=== PATIENT | male | born 1970 | race Caucasian/White ===

== ENCOUNTER → 2016-05-13 | Outpatient (CLI) | payer OTHER ==
[~2016-05-13] MED LIST: ADULT LOW DOSE81 MG PO; BACLOFEN 10 MG10 MG PO; BACLOFEN20 MG PO; BREO ELLIPTA 11 EACH IH; BUSPIRONE HCL10 MG PO; BUSPIRONE HCL15 MG PO; CALCIUM PO; CHANTIX1 MG PO; CHOLESTYRAMINE378 GM PO; CLEOCIN HCL150 MG PO; CYMBALTA60 MG PO; DDAVP0.2 MG PO; DESMOPRESSIN A0.2 M2 PO; DILANTIN100 MG PO; DILTIAZEM 24HR240 MG PO; ESCITALOPRAM OX20 MG PO; HYDROCODONE-AP1 EAC6 PO; KEPPRA 500 MG500 M1 PO; KETOCONAZOLE60 GM TP; LASIX 20 MG TAB20 MG PO; LASIX PO; LIPITOR 20 MG T20 M1 PO; LIPITOR10 MG PO; LOMOTIL TABLET1 EACH PO; LOPRESSOR 50 MG50 M1 PO; LOPRESSOR50 PO; METFORMIN HCL1000 MG PO; METFORMIN HCL500 MG PO; NICOTINE TRANSD14 M1 TRANSDERM; NORCO 5-325 TA1 EACH PO; OXYCODONE-APAP1 EAC6 PO; PHENTERMINE H37.5 MG; POTASSIUM99 M1; PREVACID 30MG C30 M1 PG; REMERON 30 MG T30 M1 PO; SSD CREAM 1% 5050 GM TOP; SSD25 GM TOP; TIZANIDINE HCL 22 M1 PO; TRAMADOL 50 MG50 MG PO; TRICOR145 MG PO; VITAMIN D 11000 UNIT PO; VITAMIN D1000 UNI1 PO; VITAMIN D35000 UNIT PO; XANAX 0.5 MG0.5 MG PO; XANAX1 MG PO; XARELTO10 MG PO; ZOLPIDEM TARTRA10 MG PO; forteo PO
--- NOTE | ~2016-05-13 | HPC ---
[facility] [address] [address] PAIN MANAGEMENT CONSULTATION Name: NATYRICARDO Room #: REG DANIA Antonella#: [id number] Admission: 05/13/16 Attend Phys: Ramón Main MD Discharge: Date of : 68 Report #: [id number] THIS REPORT FOR: //name// CC: Ramón CAAL DATE OF SERVICE: 05/13/2016 Followup visit for management of intrathecal infusion pump. The patient returns to pain clinic today with his significant other for refill of his intrathecal infusion pump. 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 He has done pretty well with his intrathecal pump. He is here today with a report that his spasticity and pain are increased slightly. We talked about supplementing this and I have given him tizanidine 2 mg to try 3 times a day when his intermittent spasms occur. He is already on a fairly high dose of his intrathecal infusion pump with a ____ program providing 400 mcg per day. There is still room to move up, but without we would try this first. He reports that his spasticity when severe is high 8 to 9 over 10 and causes pain. Today it is not such a bad day. Notable since his last visit is his ongoing weight loss. His weight is down 30 pounds. We do not have a BMI. PHYSICAL EXAMINATION: Blood pressure is 130/90, heart rate 78, respirations 16. He is confined to an electric wheelchair. He is unable to stand related to spasticity. He has notable spasticity in the lower extremities at this time. Pump is in the right lower quadrant and nontender. IMPRESSION: 1. 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 2. Management of intrathecal infusion pump with refill and reprogramming. PROCEDURE: Skin prepped with ChloraPrep and anesthetized, 22-gauge non-coring needle advanced into the intrathecal pump. Old medication removed and discarded. The pump was refilled with baclofen 40 mL of 2000 mcg/mL. Reprogramming session was performed with no change in his current daily dose of 400 mcg with complex infusion. He will be seen back in the pain clinic in 2 to 3 months. <ELECTRONICALLY SIGNED> By: Ramón Main MD 06/05/16 1130 1644 2334 Ramón Main MD /nt
[2016-05-13 14:23] VITALS: BP 130/90
== END | disposition home or self-care (01) ==
LOC: PAIN 07:23
DX: G80.1 Spastic diplegic cerebral palsy (principal); I69.398 Other sequelae of cerebral infarction; F17.200 Nicotine dependence, unspecified, uncomplicated; Z87.820 Personal history of traumatic brain injury

== ENCOUNTER → 2016-11-15 | Outpatient (CLI) | payer OTHER ==
[~2016-11-15] VITALS: Ht 188 cm; Wt 106.1 kg
--- NOTE | ~2016-11-15 | HPC ---
[facility] [address] [place] [address] PAIN MANAGEMENT CONSULTATION Name: RICARDO ALFONSO Room #: REG DANIA Berman#: [id number] Admission: 11/15/16 Attend Phys: Randall John DO Discharge: Date of : 68 Report #: [id number] THIS REPORT FOR: //name// CC: Randall CAAL DATE OF SERVICE: 11/15/2016 The patient is a 46-year-old gentleman typically treated by Dr. Ramón Main for spasticity status post a brain tumor resection and intracranial bleed, has an intrathecal pump for management. He notes the pump does well except near the end of the pump refill cycle, he typically has increasing spasticity. This is a common phenomenon seen with the [employer] pumps, they do tend to distribute a little lower rate if they are near the end of the refill. Today, we discussed this at length. I have elected to continue some tizanidine for breakthrough spasm at the end of the cycle. We refilled the pump today; it is a 40 mL ITP. He currently gets baclofen at a flex rate with an overall daily rate of 395 mcg a day. No changes were made. PROCEDURE NOTE: After written informed consent was obtained, the patient was allowed to stay in his wheelchair, though he reclined the back. Skin overlying the intrathecal pump was cleansed with ChloraPrep. Skin wheal with Xylocaine was raised. Sterile drape was applied. Pump was accessed and aspirated residual contents, I then refilled the pump with 40 mL of new injectate, baclofen at 2000 mcg per mL. Frequent aspiration showed easy return of the injectate. Needle was removed. The area was cleansed, Band-Aids applied. Pump was reprogrammed, new refill date is 05/25/2017. No changes were made. I did renew patient's tizanidine for breakthrough spasm at the end of cycle. If the patient still has increasing pain in about 7 days, we will have him come back to see Dr. Main for intrathecal pump adjustment. By: [id number] Randall John DO /nt
[2016-11-15 13:40] VITALS: BP 116/81
== END | disposition home or self-care (01) ==
LOC: PAIN 11-12 10:29
DX: Z45.1 Encounter for adjustment and management of infusion pump (principal); Z98.890 Other specified postprocedural states; F17.210 Nicotine dependence, cigarettes, uncomplicated

== ENCOUNTER → 2017-05-25 | Outpatient (CLI) | payer OTHER ==
[~2017-05-25] VITALS: Ht 188 cm; Wt 120.2 kg
--- NOTE | ~2017-05-25 | HPC ---
[facility] [place] [address] PAIN MANAGEMENT CONSULTATION Name: NATYRICARDO Room #: REG DANIA GuzmanGoldieLatoshaGoldie#: [id number] Admission: 05/25/17 Attend Phys: Ramón Main MD Discharge: Date of : 68 Report #: [id number] THIS REPORT FOR: //name// CC: Ramón CAAL DATE OF SERVICE: 05/25/2017 REASON: Followup visit for management of spasticity with intrathecal pump. HISTORY: The patient returns to pain clinic today for refill of his intrathecal pump. He has baclofen infusing under a Flex program providing a total of 395 mcg a day. His spasticity is generally well controlled, although he reports interestingly that near the end of his pump run close to his alarm date, he seems to have increasing spasticity. This is a pretty long interval usually about 181 days. We have decided that for the next refill, we will try and bring him in at about 6.5-7 months. Spasticity today has increased a slight amount. His spasticity is related to closed head injury. He is currently living in an independent apartment. He has a caregiver that comes in 2 hours a day. She does some of the work for him. He has had good caregivers and some that are not so helpful. He is not as pleased with his current caregivers. He is one from the one he had prior to this. That woman was an immigrant from [place]. I interrogated his pump. He is receiving baclofen. There has been no alarm status. PHYSICAL EXAMINATION: GENERAL: The patient is in a wheelchair. He has [id number] spasticity in lower extremities. VITAL SIGNS: Blood pressure is 130/80, heart rate is 85. IMPRESSION: 1. Spasticity related to closed head injury. 2. Management of intrathecal infusion pump with refill and reprogramming session. PROCEDURE: Skin was prepped with ChloraPrep and anesthetized, and a 22-gauge non-coring needle advanced into the pump. Old medication removed and discarded. A 2 mL expected and retrieved. Pump was refilled with 40 mL of baclofen 2000 mcg/mL. The programming session was performed. [facility] [address] [place] [address] PAIN MANAGEMENT CONSULTATION Name: RICARDO ALFONSO Room #: REG [facility]#: [id number] Admission: 05/25/17 Attend Phys: Ramón Main MD Discharge: Date of : 68 Report #: [id number] PLAN: For him to return to the pain clinic in October of next year. Programming information was reviewed and signed and a copy was given across for his records. <ELECTRONICALLY SIGNED> By: Ramón Main MD 06/22/17 1640 1345 2132 Ramón Main MD /nt
[2017-05-25 12:41] VITALS: BP 136/87
== END | disposition home or self-care (01) ==
LOC: PAIN 05-23 07:05
DX: Z45.2 Encounter for adjustment and management of vascular access device (principal); G80.1 Spastic diplegic cerebral palsy; G89.29 Other chronic pain; F41.8 Other specified anxiety disorders; F17.210 Nicotine dependence, cigarettes, uncomplicated; Z88.8 Allergy status to other drugs, medicaments and biological substances; Z79.891 Long term (current) use of opiate analgesic; Z98.890 Other specified postprocedural states; Z79.899 Other long term (current) drug therapy

== ENCOUNTER 2017-07-26 12:53 | Emergency (ER) | payer OTHER ==
[~2017-07-26] VITALS: Ht 188 cm; Wt 114.8 kg
== END 2017-07-26 18:05 | disposition home or self-care (01) ==
LOC: ER 12:53
DX: S81.801A Unspecified open wound, right lower leg, initial encounter (principal); E11.9 Type 2 diabetes mellitus without complications; I10 Essential (primary) hypertension; F17.210 Nicotine dependence, cigarettes, uncomplicated; Z88.1 Allergy status to other antibiotic agents; X58.XXXA Exposure to other specified factors, initial encounter; Y93.89 Activity, other specified; Y92.89 Other specified places as the place of occurrence of the external cause; Y99.8 Other external cause status

== ENCOUNTER → 2017-11-14 | Outpatient (CLI) | payer OTHER ==
--- NOTE | ~2017-11-14 | HPC ---
[facility] [place] [address] PAIN MANAGEMENT CONSULTATION Name: NATYRICARDO Benigno Room #: REG DANIA Velasquez.#: [id number] Admission: 11/14/17 Attend Phys: Ramón Main MD Discharge: Date of : 68 Report #: [id number] THIS REPORT FOR: //name// CC: Physician staff Ramón Torres DO DATE OF SERVICE: 11/14/2017 Followup visit for management of intrathecal infusion pump for spasticity. The patient is here today for renewal of medication in his intrathecal pump. He is receiving Baclofen with a flex program, daily dose is 395 mcg. He has a slightly larger dose between midnight and 07:00 a.m. He reports that his current medication is adequate. He has history of closed head injury. He is living in an independent apartment with a caregiver. He continues to smoke and was counselled regarding this. He is a fall risk and needs help with movements due to his spasticities. His comorbidities include seizure disorder, history of CVA, hypertension and depression. PHYSICAL EXAMINATION: He is pleasant and he was alert and oriented, without signs of overmedication. Blood pressure is 123/74, heart rate 87. He is overweight; with his immobility, his current weight is 300 pounds. We did not check his height, so I cannot give BMI. He has a history of hypertension. He is on no opioid medications through our clinic, only the Baclofen. He does not drink alcohol, but smokes up to a pack a day and was counselled. Physical exam shows a local cranial defect, status post compression. He is afebrile. Blood pressure 123/74. Pump is in the left lower quadrant of the abdomen; it is nontender. IMPRESSION: 1. Closed head injury with spasticity. 2. Management of intrathecal infusion pump. PROCEDURE: Pump was refilled in the usual fashion. Skin prepped with ChloraPrep and a 22-gauge non-coring needle advanced in the pump. Old medication removed and discarded. Pump was refilled with baclofen 2000 mcg per mL with 40 mL. Reprogramming session performed. His next refill is not scheduled until 05/24/2018. [address] [address] PAIN MANAGEMENT CONSULTATION Name: RICARDO ALFONSO Benigno Room #: REG [facility]#: [id number] Admission: 11/14/17 Attend Phys: Ramón Main MD Discharge: Date of : 68 Report #: [id number] No oral medications were written. Followup visit is scheduled in April. <ELECTRONICALLY SIGNED> By: Ramón Main MD 11/16/17 1622 1610 2226 Ramón Main MD /nt
[2017-11-14 14:37] VITALS: BP 123/74
== END | disposition home or self-care (01) ==
LOC: PAIN 10-24 06:45
DX: Z45.1 Encounter for adjustment and management of infusion pump (principal); G80.1 Spastic diplegic cerebral palsy; I10 Essential (primary) hypertension; F32.9 Major depressive disorder, single episode, unspecified; F17.210 Nicotine dependence, cigarettes, uncomplicated; G40.909 Epilepsy, unspecified, not intractable, without status epilepticus; Z79.899 Other long term (current) drug therapy; Z88.8 Allergy status to other drugs, medicaments and biological substances

== ENCOUNTER 2018-01-28 19:47 | Emergency (ER) | payer OTHER ==
[~2018-01-28] VITALS: Ht 188 cm; Wt 127.0 kg
--- NOTE | ~2018-01-28 | EKG ---
[address] [address] ELECTROCARDIOGRAM REPORT Name: NATYRICARDO Room #: [facility]#: [id number] Admission: 01/28/18 Attend Phys: Discharge: 01/28/18 Date of : 68 Report #: [id number] THIS REPORT FOR: //name// [facility] ED Test Date: 2018-01-28 Test Time: 20:53:58 Pat Name: RICARDO ALFONSO Department: Room: Gender: Proc Tech: 1 : 1970 Requested By: Amy Ramsey Order Number: [id number] MD: Titus Rust Measurements Intervals [place] Rate: 122 P: 74 WI: 121 QRS: 71 QRSD: 101 T: 12 QT: 313 QTc: 446 Interpretive Statements Sinus tachycardia Otherwise no significant abnormality Compared to ECG 12/28/2017 19:15:00 No significant change was found Electronically Signed On 01-29-2018 11:32:42 CDT by Titus Rust [email or web address] <ELECTRONICALLY SIGNED> By: Titus Rust MD, [facility] 01/29/18 1132 52 52 Titus Rust MD, FAC /EPI
[2018-01-28 20:21] LABS: ABSOLUTE NEUTROPHILS 8.8 thou/uL (1.4-8.2); BASOPHILS 1.2 % (0.0-2.0); CALCIUM 9.4 mg/dL (8.5-10.1); CREATININE 0.9 mg/dL (0.7-1.3); EOSINOPHILS 2.1 % (0.0-3.0); HEMATOCRIT 47.8 % (42.0-52.0); HEMOGLOBIN 16.9 gm/dL (14.0-18.0); LYMPHOCYTES 14.1 % (24.0-44.0); MCH 33.8 pg (26.0-34.0); MCHC 35.3 g/dL (28.0-37.0); MCV 95.7 fL (80.0-100.0); MONOCYTES 8.6 % (1.0-8.0); PLATELET COUNT 219 thou/uL (150-400); POTASSIUM 3.8 mmol/L (3.5-5.1); WBC 11.9 thou/uL (4.0-11.0)
== END 2018-01-28 23:26 | disposition home or self-care (01) ==
LOC: ER 19:47
PROVIDERS: Student in an Organized Health Care Education/Training Program
DX: H53.8 Other visual disturbances (principal); E11.9 Type 2 diabetes mellitus without complications; F32.9 Major depressive disorder, single episode, unspecified; F41.9 Anxiety disorder, unspecified; I11.0 Hypertensive heart disease with heart failure; I50.9 Heart failure, unspecified; Z86.73 Personal history of transient ischemic attack (TIA), and cerebral infarction without residual deficits; F17.210 Nicotine dependence, cigarettes, uncomplicated; Z88.1 Allergy status to other antibiotic agents

== ENCOUNTER → 2018-05-18 | Outpatient (CLI) | payer OTHER ==
--- NOTE | ~2018-05-18 | HPC ---
[facility] [place] [address] PAIN MANAGEMENT CONSULTATION Name: RICARDO ALFONSO Benigno Room #: REG DANIA VelasquezGoldie#: [id number] Admission: 05/18/18 Attend Phys: Ramón Main MD Discharge: Date of : 68 Report #: [id number] THIS REPORT FOR: //name// CC: Ramón Torres DO DATE OF SERVICE: 05/18/2018 Followup visit for management of intrathecal infusion pump. The patient is here today for refill of his intrathecal infusion pump. He has had closed head injury in the past and suffers with spasticity. He is still able to live independently. He has a dog that he takes care of and he is able to do all his own transfers. He is clearly a fall risk and needs help with movements. He has someone come in with today. He is continuing to smoke and was counseled regarding this. PHYSICAL EXAMINATION: His blood pressure is 145/95, heart rate is 110. His blood pressures treated with medication by primary. He is in a wheelchair and he was unable to be weighed today. He smells heavily of tobacco. Hygiene is poor. He has tenderness across his back and into his neck. There is local cranial defect status post decompression. IMPRESSION: 2. Closed head injury with spasticity. 3. Management of intrathecal pump with baclofen. PROCEDURE: Refill and reprogramming. Skin was prepped with ChloraPrep and anesthetized. A 22-gauge non-coring needle advanced in the pump first attempt. Old medication removed and discarded. Pump was then refilled with baclofen 2000 mcg/mL. Reprogramming session was performed. He will be receiving on an average day 395 mcg of baclofen. His next refill is scheduled for 11/23/2018. No oral medications were provided. He was discharged in good condition. By: 1648 1712 Ramón Main MD /nt
[2018-05-18 13:23] VITALS: BP 145/95
--- NOTE | 2018-05-18 13:58 | NUR ---
Pain Clinic Assessment: 1. History of Osteoarthritis: Not Applicable History of Rheumatoid Arthritis: Not Applicable 2. Height: ft. in. cm. Weight: lb. oz. kg. Patient's BMI: 3. Vital Signs: BP: 145/95 Pulse: 110 Resp: 20 Temp: 02 Sat: 96 ECG Mon: 4. Pain Intensity: 0 5. Fall Risk: Dizziness: N Needs help standing or walking: Y Fallen in the last 3 months: N Fall risk comments: 6. Patient on Blood Thinner: None 7. History of Hypertension: Y 8. Opioid Therapy greater than 6 weeks: N Opiate Contract Signed: 9. Risk Assessment Tool Provided: 1-low risk 10. Functional Assessment Tool: 11. Recreational Drug Use: Never Drug Type: Tobacco Use: Current Every Day Smoker Tobacco Type: Cigarettes Amount or Packs/day: 1 How Many Years: 30 Alcohol Use: No Frequency: Quant:
== END | disposition home or self-care (01) ==
LOC: PAIN 07:16
DX: Z45.1 Encounter for adjustment and management of infusion pump (principal); G89.29 Other chronic pain; G80.1 Spastic diplegic cerebral palsy; F17.210 Nicotine dependence, cigarettes, uncomplicated; Z79.891 Long term (current) use of opiate analgesic; Z98.890 Other specified postprocedural states; Z79.899 Other long term (current) drug therapy; Z88.8 Allergy status to other drugs, medicaments and biological substances

== ENCOUNTER 2018-10-16 17:33 | Emergency (ER) | payer OTHER ==
[~2018-10-16] VITALS: Ht 188 cm; Wt 136.1 kg
[2018-10-16 18:36] LABS: ABSOLUTE NEUTROPHILS 7.9 thou/uL (1.4-8.2); BASOPHILS 0.9 % (0.0-2.0); EOSINOPHILS 4.2 % (0.0-3.0); HEMATOCRIT 51.7 % (42.0-52.0); HEMOGLOBIN 17.6 gm/dL (14.0-18.0); LYMPHOCYTES 13.7 % (24.0-44.0); MCH 33.5 pg (26.0-34.0); MCHC 34.1 g/dL (28.0-37.0); MCV 98.1 fL (80.0-100.0); MONOCYTES 9.4 % (1.0-8.0); PLATELET COUNT 267 thou/uL (150-400); POLYS 71.8 % (36.0-66.0); RBC 5.27 mil/uL (4.50-6.00); RDW 14.5 % (10.5-14.5)
[2018-10-16 18:40] LABS: ANION GAP 8 mmol/L (7-16); BUN 4 mg/dL (7-18); CHLORIDE 105 mmol/L (98-107); CO2 32 mmol/L (21-32); CREATININE 1.1 mg/dL (0.7-1.3); GLUCOSE 99 mg/dL (74-106); POTASSIUM 4.2 mmol/L (3.5-5.1); SODIUM 145 mmol/L (136-145)
[2018-10-16 18:49] LABS: TROPONIN-I <0.06 ng/mL (<0.06)
[2018-10-16 20:41] VITALS: BP 131/93
--- NOTE | 2018-10-18 07:39 | EKG ---
[address] [address] ELECTROCARDIOGRAM REPORT Name: RICARDO ALFONSO Room #: [facility]#: [id number] ������������������ Admission: 10/16/18 ������������������ Attend Phys: Discharge: 10/16/18 ������������������ Date of : 68 Report #: [id number] ����������������������������������������������������������������� [id number] THIS REPORT FOR: //name// [facility] ED Test Date: 2018-10-16 Test Time: 17:52:39 Pat Name: RICARDO ALFONSO Department: Room: Gender: M Hypo Dipper: NANDINI : 1970 Requested By: Radha Nicole Order Number: [id number] MD: Titus Rust Measurements Intervals [place] Rate: 109 P: 55 TX: 173 QRS: 57 QRSD: 89 T: 85 QT: 333 QTc: 449 Interpretive Statements Sinus tachycardia Borderline low voltage, extremity leads Compared to ECG 01/28/2018 20:53:58 No significant changes Electronically Signed On 10-18-2018 7:39:12 CDT by Titus Rust [email or web address] ��������������������������������������������� <ELECTRONICALLY SIGNED> ���������������������������������������� By: Titus Rust MD, [facility] ��������������������������������������������� 10/18/18 0739 51 51 Titus Rust MD, FACC /EPI
== END 2018-10-16 21:34 | disposition home or self-care (01) ==
LOC: ER 17:33
PROVIDERS: Emergency Medicine
DX: R00.0 Tachycardia, unspecified (principal); R06.2 Wheezing; E11.9 Type 2 diabetes mellitus without complications; F41.9 Anxiety disorder, unspecified; I11.0 Hypertensive heart disease with heart failure; I50.9 Heart failure, unspecified; F32.9 Major depressive disorder, single episode, unspecified; F17.210 Nicotine dependence, cigarettes, uncomplicated; Z88.1 Allergy status to other antibiotic agents; Z86.73 Personal history of transient ischemic attack (TIA), and cerebral infarction without residual deficits

== ENCOUNTER → 2018-11-23 | Outpatient (CLI) | payer OTHER ==
[~2018-11-23] MED LIST changes: +BACLOFEN 10MG T10 MG PO
--- NOTE | ~2018-11-23 | HPC ---
[facility] [place] [address] PAIN MANAGEMENT CONSULTATION Name: NATYRICARDO Benigno Room #: REG DANIA GuzmanGoldieLatoshaGoldie#: [id number] Admission: 11/23/18 ������������������ Attend Phys: Ramón Main MD Discharge: ������������������ Date of : 68 Report #: [id number] THIS REPORT FOR: //name// CC: Josefina Main DATE OF SERVICE: 11/23/2018 Followup visit for management of intrathecal baclofen pump and the treatment of spasticity related to closed head injury. The patient returns to pain clinic today for refill. We do his pump refills about twice a year. He is doing okay, although today, he is really disheveled. He has a caregiver that comes and helps him most days, but she did not come in today. His clothes are unkempt and he looks as though he needs a shower and bath. We discussed that. He is receiving his caregiver services through Medicaid. It has allowed him to remain independent in [address] He came today by Andrea. He says that his spasticity is adequately controlled at current rate, which is 395 mcg of baclofen per day. PQRS review is completed: 1. He denies any history of arthritis. 2. BMI is well in excess of 40. We did not weigh him off his chair today. Blood pressure is 111/75, heart rate 107, respirations 16. Pain intensity is 0. He is at fall risk and needs help standing and transferring. He is on no blood thinners, but does have a history of hypertension. He is prescribed medications by his primary care physician. His medication list was reviewed and reconciled before discharge and is on electronic medical record. I did not provide oral medications for him, although I did provide a supplement, an emergency dose of oral baclofen for him today. He is on no opioid medications. He continues to smoke a pack of cigarettes a day, but denies alcohol. PHYSICAL EXAMINATION: VITAL SIGNS: As noted above. GENERAL: He is a very pleasant, outgoing gentleman and almost jovial. CHEST: Clear to auscultation. HEART: His cardiac rhythm is regular. NEUROLOGICAL: He has minimal spasticity. SKIN: He has significant thickening of the skin, almost alligator skin like in the calves in the lower extremities. There is no evidence of infection or cellulitis. It should be noted that he has multiple dental caries and we discussed oral hygiene as well during this visit today. [facility] [address] [place] [address] PAIN MANAGEMENT CONSULTATION Name: RICARDO ALFONSO [facility] [id number] Admission: 11/23/18 ������������������ Attend Phys: Ramón Main MD Discharge: ������������������ Date of : 68 Report #: [id number] IMPRESSION: 1. Closed head injury with spasticity. 2. Management of intrathecal pump with baclofen refill and reprogramming. We prepared to refill his pump. PROCEDURE: The skin was prepped with ChloraPrep and a 22-gauge needle advanced in the pump. I withdrew the 3 mL of remaining solution and prepared, discarded, but we had opened up the ____ kits and could not find the vials. At first, it was felt that the packaging was incomplete. It was later found that we had removed and placed them in the skin therapist the treatment cart. The pump was then refilled with 40 mL of baclofen 2000 mcg/mL and reprogramming session was performed. His next refill will not be until 04/2019. Reprogramming information was checked. A copy was provided for the patient. I did give him a prescription today for baclofen 10-mg tablets, #30, 1 to 2 tablets q.6 hours as needed in case he feels that he is going through baclofen withdrawal. We have had a pump failure in the past, although it is quite unusual. Instructions were given to the patient on how to manage such an event. We plan to see him back in the clinic for refill in 6 months. ��������������������������������������������� ���������������������������������������� By: ��������������������������������������������� 1728 0010 Ramón Main MD /nt
[2018-11-23 14:20] VITALS: BP 111/75
--- NOTE | 2018-11-23 14:37 | NUR ---
Pain Clinic Assessment: 1. History of Osteoarthritis: Not Applicable History of Rheumatoid Arthritis: Not Applicable 2. Height: ft. in. cm. Weight: lb. oz. kg. Patient's BMI: 3. Vital Signs: BP: 111/75 Pulse: 107 Resp: 16 Temp: 02 Sat: 95 ECG Mon: 4. Pain Intensity: 0 5. Fall Risk: Dizziness: N Needs help standing or walking: Y Fallen in the last 3 months: N Fall risk comments: 6. Patient on Blood Thinner: None 7. History of Hypertension: Y 8. Opioid Therapy greater than 6 weeks: N Opiate Contract Signed: 9. Risk Assessment Tool Provided: 1-low risk 10. Functional Assessment Tool: 11. Recreational Drug Use: Never Drug Type: Tobacco Use: Current Every Day Smoker Tobacco Type: Cigarettes Amount or Packs/day: 1 PACK/DAY How Many Years: Alcohol Use: No Frequency: Quant:
== END | disposition home or self-care (01) ==
LOC: PAIN 06:50
DX: Z45.1 Encounter for adjustment and management of infusion pump (principal); I10 Essential (primary) hypertension; F17.210 Nicotine dependence, cigarettes, uncomplicated; Z88.8 Allergy status to other drugs, medicaments and biological substances; Z79.899 Other long term (current) drug therapy

== ENCOUNTER 2018-12-21 23:28 | Inpatient (IN) | payer OTHER ==
[~2018-12-21] VITALS: Ht 190.5 cm; Wt 142.8 kg
[2018-12-21 23:30] VITALS: BP 140/79
[2018-12-21] MEDS ORDERED: FLUTICASONE-SA1 EAC4 INH (23:39)
[2018-12-21] MEDS ORDERED: VENTOLIN HFA 1818 GM INH (23:39)
[2018-12-21] MEDS ORDERED: LOMOTIL TABLET1 EACH PO (23:40)
[2018-12-21] MEDS ORDERED: QUETIAPINE FUM100 MG PO (23:40)
[2018-12-21] MEDS ORDERED: NF (23:57)
[2018-12-22 00:29] LABS: URINE BILIRUBIN NEGATIVE (Negative); URINE BLOOD TRACE (Negative); URINE CLARITY CLEAR; URINE COLOR YELLOW; URINE GLUCOSE-RANDOM* NEGATIVE (Negative); URINE KETONES NEGATIVE (Negative); URINE LEUKOCYTES-REFLEX NEGATIVE (Negative); URINE NITRITE-REFLEX NEGATIVE (Negative); URINE PROTEIN (DIPSTICK) NEGATIVE (Negative); URINE SPECIFIC GRAVITY <= 1.005 (1.005-1.035); URINE UROBILINOGEN 0.2 E.U./dl (0.2-1.0)
[2018-12-22 00:36] LABS: ABSOLUTE NEUTROPHILS 5.6 thou/uL (1.4-8.2); EOSINOPHILS 5.4 % (0.0-3.0); HEMATOCRIT 50.9 % (42.0-52.0); HEMOGLOBIN 17.3 gm/dL (14.0-18.0); LYMPHOCYTES 16.5 % (24.0-44.0); MCH 34.3 pg (26.0-34.0); MCV 100.8 fL (80.0-100.0); MONOCYTES 9.4 % (1.0-8.0); PLATELET COUNT 221 thou/uL (150-400); POLYS 67.7 % (36.0-66.0); RBC 5.05 mil/uL (4.50-6.00); RDW 14.9 % (10.5-14.5); WBC 8.3 thou/uL (4.0-11.0)
[2018-12-22 00:38] LABS: ANION GAP 9 mmol/L (7-16); BUN 15 mg/dL (7-18); CALCIUM 9.9 mg/dL (8.5-10.1); CHLORIDE 108 mmol/L (98-107); CO2 29 mmol/L (21-32); GLUCOSE 85 mg/dL (74-106); POTASSIUM 4.5 mmol/L (3.5-5.1); SODIUM 146 mmol/L (136-145)
[2018-12-22 00:40] LABS: APTT 28.7 Seconds (24.5-32.8); PROTIME 9.5 Seconds (9.3-11.4)
[2018-12-22 00:48] LABS: ALBUMIN 3.4 g/dL (3.4-5.0); MAGNESIUM 2.2 mg/dL (1.8-2.4); SGOT 16 U/L (15-37); SGPT 28 U/L (30-65); TOTAL BILIRUBIN 0.2 mg/dL (<0.1-1.0); TROPONIN-I <0.06 ng/mL (<0.06)
[2018-12-22 03:01] VITALS: BP 158/117
[2018-12-22 03:14] VITALS: BP 153/89
[2018-12-22] MEDS ORDERED: DESMOPRESSIN A0.2 M2 PO (03:52)
--- NOTE | 2018-12-22 06:03 | NUR ---
PT ARRIVED FROM ED. ADMISSION COMPLETED. VSS. CONTACT PRECAUTIONS IN PLACE. DENIES PAIN, DENIES N/V. CALL LIGHT WITHIN REACH, WILL CONTINUE POC UNTIL EOS.
[2018-12-22 08:17] VITALS: BP 148/98
--- NOTE | 2018-12-22 09:15 | NUR ---
WOUND CARE CONSULT; NO WOUNDS WERE IDENTIFIED ONLY DRY SCALY SKIN FROM CALF TO TOES. THIS MAN IS A PARAPLEGIC. RECOMMENDATIONS; AMMONIA LACTATE CREAM TO BILATERAL LE'S FROM CALF TO TOES. RN AND DR ZIMMERMAN PRESENT
[2018-12-22] MEDS ORDERED: CLEOCIN HCL150 MG PO (11:23)
--- NOTE | 2018-12-22 16:37 | NUR ---
FAXED H/P TO PT'S PCP DR. YONAS DOMINGUEZ RECEIVED CONFIRMATION. DISCHARGE HAS BEEN C.ANCELLED FOR TODAY PT HAS NO CAREGIVER AT HOME. DCP TO FOLLOW
[2018-12-22 18:14] VITALS: BP 104/59
--- NOTE | 2018-12-22 18:45 | NUR ---
met with patient who is paraplegic, hx of brain sx, hx of stroke. He resides at home and reports his medicaid manager clinical pharmacy recently quit. He reports he has a bed with a trapeze and transfers himself to/from . He reports his PCP Dr Kaela Mock. Asked how he gets to [facility] he reports he has share a fare. Attempted to find if patient has a hh agency. Called PCP they are visiting home physicians. His RN practioner was at that home. THey could not give me and RN to sp with or phys all busy. Sp with desk operator who believes patient has [facility]. They dont. At 1615 who is called [facility] [phone]. They report patient cannot dc home they admitted to hospital with concern no caregiver as his medicaid worker quit due to bed bugs. The medicaid worker agency left notice to patient that he has bed bugs and they will not send in staff until certificate of cleaniness. RN reports conncern for care in home. Requested OT eval if patient can transfer safely. Patient reports he does have bed bugs and cannot afford to clean he has no money and expensive. He wants live in his home and needs care. Plan to remain in hospital until Tuesday. Hotlined patient to state requesting they see patient in hospital..
--- NOTE | 2018-12-22 18:49 | NUR ---
PT ASSESSED AT START OF SHIFT. HERE FROM HOME. POOR SELF CARE. HELP FROM NEIGHBOR. PT ABLE TO TURN SELF W/ HELP. FEEDS SELF. NO C/O PAIN. DESIGN ARCHITECT ASSISTING W/ PT DISCHARGE PLANS.
[2018-12-22 21:40] VITALS: BP 127/68
--- NOTE | 2018-12-23 00:12 | NUR ---
ASSESSMENT COMPLETED.PT DENIES PAIN. BLE ELEVATED. PT USES URINAL. ON A BIPAP TONIGHT WITH THE CONTINOUS PULSE OX.CONTINUES ON IV ABTS.
[2018-12-23 05:15] VITALS: BP 145/88
[2018-12-23 05:58] LABS: CREATININE 0.9 mg/dL (0.7-1.3); POTASSIUM 3.9 mmol/L (3.5-5.1)
[2018-12-23 08:34] VITALS: BP 125/86
--- NOTE | 2018-12-23 10:13 | NUR ---
Assess due to notification of wounds, however wound care has assessed and noted no open lesions. Hx paraplegia, dm, htn, brain tumor and cva. Lives alone and has aide to assist however not currently due to bed bug infestation a home. academic services coordinator following. Wt obese, BMI 39. Has heart healthy diet order, glucose level 107-207. Add carb control, Low nutrition risk
[2018-12-23 16:07] VITALS: BP 109/63
[2018-12-23 20:35] VITALS: BP 119/72
--- NOTE | 2018-12-24 02:00 | NUR ---
ALERT AND ORIENTED. PT CONCERNED ABOUT HIS POC. HE DENIES PAIN. GAGE LEGS WITH EDEMA, ELEVATED ON PILLOWS.AFEBRILE.CONTINUES ON IV ABTS.
[2018-12-24 02:47] VITALS: BP 119/72
[2018-12-24 02:50] VITALS: BP 116/79
[2018-12-24 08:50] VITALS: BP 98/63
--- NOTE | 2018-12-24 10:22 | NUR ---
7am-1pm Rceived awake on bed. Due medications given as prescribed, able to swallow tablets w/o difficulty. A+Ox4. Pt can be hear coughing, on O2 at night as PRN, daytime on room air. On blood sugar monitoring-taken and recorded accordingly, with sliding scale insulin prescribed. Pt able to use bedpan and urinal. Pt with cellulitis at lower extremities- kept elevated, ammonium lactate applied to his legs, cleaned area prior to application. Assisted in ADLs. Maintained on isolation due to bed bugs. No complaints of pain made. Pt turned regularly. With SL at L FA- intact and flushing well. Vital signs stable.
[2018-12-24 15:54] VITALS: BP 95/48
[2018-12-24 21:20] VITALS: BP 100/55
--- NOTE | 2018-12-25 04:26 | NUR ---
PATIENT ALERT AND ORIENTED X4. REMAINS BEDREST. DENIES PAIN. CPAP AT NIGHT WITH RT. VOIDING PER URINAL. ISOLATION FOR BED BUGS CONTINUES. BLOOD SUGAR MONITORED PER ORDER. SPUTUM AND BLOOD CULTURES ARE PENDING. POSSIBLE PLACEMENT ON TUESDAY. RESTING QUIETLY. WILL MONITOR.
[2018-12-25 07:10] VITALS: BP 132/74
[2018-12-25 16:15] VITALS: BP 126/78
[2018-12-25 20:25] VITALS: BP 155/72
[2018-12-26 04:59] VITALS: BP 107/70
--- NOTE | 2018-12-26 07:31 | EKG ---
[address] [place] [address] ELECTROCARDIOGRAM REPORT Name: NATYRICARDO Room #: 419-P ADM IN ..#: [id number] ������������������ Admission: 12/22/18 ������������������ Attend Phys: Rubén Crisostomo MD Discharge: ������������������ Date of : 68 Report #: [id number] ����������������������������������������������������������������� [id number] THIS REPORT FOR: //name// [facility] ED Test Date: 2018-12-22 Test Time: 01:15:47 Pat Name: RICARDO ALFONSO Department: Room: [facility] Gender: M Master Yacht: chong cai : 1970 Requested By: Matthew Lopez Order Number: [id number] MD: Titus Rust Measurements Intervals [place] Rate: 86 P: 71 DC: 178 QRS: 66 QRSD: 95 T: 67 QT: 385 QTc: 461 Interpretive Statements Sinus rhythm Normal tracing Compared to ECG 10/16/2018 17:52:39 Sinus tachycardia no longer present Electronically Signed On 12-26-2018 7:31:08 CDT by Titus Rust [email or web address] ��������������������������������������������� <ELECTRONICALLY SIGNED> ���������������������������������������� By: Titus Rust MD, [facility] ��������������������������������������������� 12/26/18 0731 0115 0115 Titus Rust MD, [facility] /EPI
[2018-12-26 07:58] VITALS: BP 103/61
[2018-12-26 12:18] LABS: HEMATOCRIT 43.6 % (42.0-52.0); MCH 34.2 pg (26.0-34.0); MCHC 34.5 g/dL (28.0-37.0); MCV 99.3 fL (80.0-100.0); RBC 4.39 mil/uL (4.50-6.00); RDW 14.5 % (10.5-14.5)
[2018-12-26 12:36] LABS: CALCIUM 9.2 mg/dL (8.5-10.1); CREATININE 0.9 mg/dL (0.7-1.3); POTASSIUM 3.9 mmol/L (3.5-5.1)
--- NOTE | 2018-12-26 14:35 | NUR ---
Following for d/c planning needs. Received telephone call from pt's daughter Lenore ([phone]). Dtr said that pt agreed to go to assisted living closer to daughter. Dtr lives in [place]. Long talk with pt. He is not interested in going to assisted living and said that family is trying to take over his house. Pt said his ex- will not sign quit-claim deed, so he cannot sell the house. Pt does not want to move, but house is in ex-'s name. Called Alex Vasiliy ([phone]) [facility] homemaker service provider and they had given patient 21 day notice of no longer providing care in the home. Spoke with Radha with [facility] ([phone]). She said that pt will need to find new provider for homemaker services. Pt is currently on service with [facility] nursing only ([phone]). He had been on service with them for OT and PT in the past, but not currently. [facility] also has homemaker services through [facility]. Spoke with Sierra Waite ([phone]; cell [phone]), [facility] worker assigned from hotline. She said she has done home visit at pt's home and she was told by pt that he had supervisor insecticide at the house for the bed bugs. Pt was given phone number to call [facility] if he wants to use them for homemaker services, and then pt to call Radha with [facility] to notify of new company. Pt adamantly refuses SNF, but would be agreeable to inpatient rehab. [facility] is not in network with pt's insurance. Referral made to [facility]. If pt is able to find new caregiver through [facility], he would prefer to go home with home health services. Will remain available to assist as needed. [facility] [phone]; fax [phone]
--- NOTE | 2018-12-26 16:04 | NUR ---
FAXED REFERRAL TO [facility] SPOKE WITH STEPHANIE IN ADM SHE RECEIVED REFERRAL AND WILL REVIEW STILL NEED PT/OT NOTES WILL FAX ONCE AVAILABLE. DCP TO FOLLOW.
--- NOTE | 2018-12-26 16:19 | NUR ---
Assumed care of pt at 0700. Denies pain. IV antibiotics infusing. Isolation for bed bugs. Cpap at night. Call light within reach. Fall precautions in place. Will continue to monitor.
[2018-12-26 17:19] VITALS: BP 102/62
[2018-12-26 21:53] VITALS: BP 127/88
--- NOTE | 2018-12-27 06:22 | NUR ---
PATIENT ALERT AND ORIENTED X4. REMAINS IN ISOLATION FOR BEDBUGS. ACCUCHECK WAS 102, NO INSULIN COVERAGE NEEDED. ON BEDREST. IS ABLE TO MOVE HIS EXTREMETIES SOMEWHAT. FEET VERY THICK, BROWN, PEELING SKIN. SLEPT LITTLE THIS SHIFT. DENIES PAIN.
[2018-12-27 09:03] VITALS: BP 129/86
--- NOTE | 2018-12-27 10:48 | NUR ---
WOUND CARE FOLLOW UP; THE BILATERAL LE'S SHOW IMPROVEMENT. WE WILL CONTINUE THE AMMONIA LACATE CREAM DAILY. DISCUSSED WITH ISMAEL
[2018-12-27 19:38] VITALS: BP 118/79
[2018-12-27 19:44] VITALS: BP 141/81
--- NOTE | 2018-12-27 22:41 | NUR ---
PATIENT ALERT AND ORIENTED AND COOPERATIVE WITH POC AND INDICATED HE IS WAITING FOR REHAB PLACEMENT AND DOES NOT WANT TO DISCHARGE TO [facility] BECAUSE THINKS HE WON'T GET GOOD CARE. SPOKE WITH [facility]IV[facility] INFECTION CONTROL AND VASU IN EVS REGARDING POTENTIAL REMAINING BED BUGS. NONE HAVE BEEN IDENTIFIED. VASU IN EVS STATES BED BUG MUST BE PLACE IN BAG FOR PROPER IDENTIFICATION BY RV DETAILER BEFORE RV DETAILER CAN BE CALLED IN TO EXTERMINATE. VASU'S # [phone]. PATIENT'S BELONGING ARE TO BE BAGGED AND SENT HOME. PER SHIVAM, POLICY IS IN MANUAL ON NURSE UNIT.
--- NOTE | 2018-12-28 06:35 | NUR ---
ASSUMED CARE OF PT @1900 PT IN ISOLATION FROM BEDBUGS. COLLECTED TWO BUGS IN A SPECIMEN BAG FOR EVS SERVICES. DENIES PAIN. NO IV CURRENTLY IN PLACE. STUCK X3 BUT NO ATTEMPT. CALLED [facility]PER[facility] AND ORDERS FOR ABX CHANGED TO PO. PT WAITING FOR PLACEMENT IN [place]. WOUND ON LOWER EXTREMITES DRY AND SCALLY. WILL CONTINUE WITH POC TILL EOS.
[2018-12-28 08:15] VITALS: BP 118/96
--- NOTE | 2018-12-28 11:40 | HC ---
[facility] [place] [address] CONSULTATION Name: RICARDO ALFONSO Room #: 419-P [facility] IN ..#: [id number] Admission: 12/22/18 ������������������ Attend Phys: Rubén Crisostomo MD Discharge: ������������������ Date of : 68 Report #: [id number] THIS REPORT FOR: //name// CC: Rubén Roberts DATE OF SERVICE: 12/27/2018 CHIEF COMPLAINT: Bilateral lower extremity ulcerations. HISTORY OF PRESENT ILLNESS: This is a 48-year-old male patient who lives in a residential facility. He has a history of a brain tumor, status post resection and subsequent paraplegia. He has a seizure disorder, has a previous hemorrhagic CVA, diabetes, and hypertension, and was admitted on 12/22/2018 with cellulitis of his lower extremities. He has been started on intravenous clindamycin. I was asked today to see him with regard to wound care. PAST MEDICAL HISTORY: Once again positive for diabetes, hypertension, congestive heart failure, lower extremity cellulitis, hemorrhagic cerebrovascular accident, status post brain tumor and resection. He is paraplegic, presumably related to the brain tumor resection. MEDICATIONS: Include albuterol, fluticasone, salmeterol, quetiapine, diphenoxylate, desmopressin, alprazolam, atorvastatin, escitalopram, and metoprolol. SOCIAL HISTORY: Negative for current alcohol use. He does smoke cigarettes daily. FAMILY HISTORY: Noncontributory. REVIEW OF SYSTEMS: Difficult to obtain. He denies any fever or chills. He does note the ulcerations on his legs. Additional review of systems is either negative or unobtainable. ALLERGIES: VANCOMYCIN. PHYSICAL EXAMINATION: VITAL SIGNS: At this time include temperature of 36.6, pulse 78, respiratory rate 17, blood pressure 129/86, pulse oximetry 94% on room air. GENERAL: This is a chronically ill-appearing male patient who appears to be in no distress. HEENT: Head normocephalic. Nose and throat clear. NECK: Supple. LUNGS: Clear. HEART: Regular rhythm. [facility] [address] [place] [address] CONSULTATION Name: NATYRICARDO Room #: 419-P [facility] IN ..#: [id number] Admission: 12/22/18 ������������������ Attend Phys: Rubén Crisostomo MD Discharge: ������������������ Date of : 68 Report #: [id number] ABDOMEN: Soft, bowel sounds present. EXTREMITIES: Examination of the lower extremities demonstrates palpable distal pulses. He has significant erythema. A lot of it appears to be chronic, dependent rubor and/or venous stasis dermatitis. He has some hyperkeratosis crusting to his lower legs as well as the anterior ankles and dorsal aspects of both feet. NEUROLOGIC: The patient is awake and alert. He has some spasticity of his lower extremities. He does not seem to have a motor control. He appears to have some light touch sensation, admits to being able to discern pressure on his feet and legs. LABORATORY DATA: Include white blood cell count 11.0 with a hemoglobin 15.0, hematocrit of 43.6, platelet count is 208,000. Sodium 137, potassium 3.6, chloride 97, BUN 9, creatinine 0.8, glucose of 91. CLINICAL IMPRESSION: 1. Venous stasis dermatitis, bilateral lower extremities. 2. Cellulitis, bilateral lower extremities that appears to be improving with IV antibiotics. 3. Paraplegia. 4. History of brain tumor, status post resection. 5. History of diabetes mellitus. RECOMMENDATIONS: At this point in time, we will use topical urea cream to the areas of hyperkeratosis on his feet bilaterally, covered with Xeroform gauze, Kerlix and Oswald wrap, changed daily. Recommend PRAFO boots while he is in bed. I would recommend a low air loss pump added to his mattress as he has limited ability to reposition himself. He will need aggressive nutritional support. Recommend to continuation of his current medications. I appreciate being asked to see him in consultation. ��������������������������������������������� <ELECTRONICALLY SIGNED> ���������������������������������������� By: Efraín Currie MD ��������������������������������������������� 12/28/18 1140 1609 0217 Efraín Currie MD /nt
--- NOTE | 2018-12-28 15:53 | NUR ---
Assumed care of pt at 0700. Pt a&ox4. Denies pain. In isolation for bed bugs. 2 bugs captured overnight and send to evs. Infection control called. Pt was bathed and linens changed. Room cleaned. EVS states that pt needs to be out of the room for transportation superintendent to go in the room. Q2h turn. Waiting for placement. Call light within reach. Will continue to monitor.
[2018-12-28 16:50] VITALS: BP 107/67
[2018-12-28 21:15] VITALS: BP 120/96
--- NOTE | 2018-12-29 03:41 | NUR ---
ASSUMED CARE OF PT @1900 PT IN BED DENIES PAIN. EVENING MEDS GIVEN AND PT HUNTER IT WELL. WEARS CPAP AT NIGHT AND GETS BREATHING TX. WOUND DRESSING ON LOWER EXT INTACT. SPOKE WITH INFECTIOUS DISEASE NURSE RODRIGO OVER THE PHONE WANTS PT TO GET DAILY BATHS IN [facility] CLANED UP FROM HEAD TO TOE AND MOVE TO A NEW ROOM TOMORROW. THIS NURSE WILL PASS INFORMATION TO DAY NURSE. WILL CONT WITH POC TILL EOS
[2018-12-29 04:45] VITALS: BP 104/67
[2018-12-29 08:22] VITALS: BP 130/79
--- NOTE | 2018-12-29 14:02 | NUR ---
CM HEARD BACK FROM ISABELLE IN ADMISSIONS AT [facility] AND SHE INDICATED THAT INSURANCE HAD DENIED ACUTE REHAB. CM SPOKE WITH PT'S FRIEND ADALI DOWELLURRY AND HE IS AWARE. CM SENT REFERRAL TO [facility] FOR REVIEW. CM AWAITING RESPONSE. CM TO FOLLOW INDICATED WITH DC PLANNING.
--- NOTE | 2018-12-29 14:12 | NUR ---
RECEIVED MESSAGE FROM FATUMA JIANG THAT PT HAS BEEN DENIED ACUTE REHAB BY [facility] BUT THEY WILL OFFER P-P BY 01/03 BY CALLING . DISCUSSED WITH DR EVANS AND HE AGREES WITH [facility] THAT PT IS MORE APPROPRIATE FOR SNF LEVEL OF REHAB. FOLLOWING.
--- NOTE | 2018-12-29 15:41 | NUR ---
REFERRAL SENT TO [facility] FOR REVIEW FOR POSSIBLE ADMISSION. THEY WILL NEED TO SEEK AUTH IF THEY ARE ABLE TO ACCEPT PT. FACILITY CAN BE CONTACTED AT . FAX . CM TO FOLLOW INDICATED WITH DC PLANNING.
[2018-12-29 17:06] VITALS: BP 121/78
--- NOTE | 2018-12-29 19:44 | NUR ---
Assumed care of pt at 0700. Pt a&ox4. On isolation for bed bugs. Per infection control instructions, pt washed and moved by mallory to room 423. Pt's room cleaned by house keeping and pt's belongings double bagged and put into biohazard bags. Per infection control, leave pt in isolation for 24 hours. If no bed bugs are not vizualized then pt can be taken off isolation. Dressings on bilateral lower extremities clean and intact. Call light within reach. Pt calls appropriately.
[2018-12-29 20:20] VITALS: BP 129/82
[2018-12-30 03:00] VITALS: BP 129/89
--- NOTE | 2018-12-30 03:37 | NUR ---
PATIENT ALERT AND ORIENTED X4. DENIES PAIN. REMAINS IN ISOLATION FOR BEDBUGS, NON-SIGHTED THIS SHIFT. ACCUCHECK WAS 117, NO INSULIN COVERAGE NEEDED. WRAPS ON GAGE LOWER EXT. INTACL. GAGE FEET HAS EDEMA 3+. CPAP AT NIGHT. SLEPT MOST OF NIGHT.
[2018-12-30 08:42] VITALS: BP 122/73
[2018-12-30 16:53] VITALS: BP 120/78
--- NOTE | 2018-12-30 19:56 | NUR ---
PT REMAINS ON BEDREST AND ISOLATION, ALERT XS 4 USES URINAL AND BEDPAN. BLOOD SUGARS MONITORED AND S/S ORDERED. MEDS ORDERED, LAURA WRAP TO GAGE LE'S PATIENT DOES NOT WANT UNWRAPPED. [facility] HAS 1 PERSON WHO DOES LYMPDEMA WRAPS. PT IS PLEASANT AND COOPERATIVE WITH CARE.
[2018-12-30 20:55] VITALS: BP 95/58
--- NOTE | 2018-12-31 03:53 | NUR ---
ASSESSMENT COMPLETED.PT DENIED PAIN SO FAR.PT REPORTED THAT HE HAS NOT HAD A BM SINCE ADMIT,SUEDING MACHINE OPERATOR ON DUTY NOTIFIED,ORDER NOTED FOR MIRALAX AND COLACE.PT STILL ON CONTACT ISOLATION FOR BEDBUGS, NONE FOUND SO FAR.PT SLEEPING WITH HIS CPAP AT THIS TIME.FALL PRECAUTIONAS IN PLACE,CALL LIGHT WITHIN REACH.
[2018-12-31 06:00] VITALS: BP 143/77
[2018-12-31 09:02] VITALS: BP 133/82
--- NOTE | 2018-12-31 14:44 | NUR ---
PT IS IN BED SLEEPING. NO PAIN OR RESP DISTRESS, BLOOD SUGARS MONITORED. S/S PER ORDERS. PT IS PLEASANT AND COOPERATIVE WITH CARE.
[2018-12-31 16:31] VITALS: BP 119/70
[2019-01-01 04:51] VITALS: BP 135/94
--- NOTE | 2019-01-01 08:09 | NUR ---
PT LYING IN BED. VOIDING PER URINAL. DENIES PAIN. RESTING COMFORTABLY. NO NEEDS VOICED. CALL LIGHT WITHIN REACH. WILL CONTINUE TO PROVIDE FREQUENT OBSERVATION.
[2019-01-01 08:20] VITALS: BP 159/91
--- NOTE | 2019-01-01 11:40 | NUR ---
Followup: continues to eat 100% meals. Remains low nutrition risk
--- NOTE | 2019-01-01 13:41 | NUR ---
WE ARE AWAITING AUTH FOR PT TO DC TO [facility]. CM TO FOLLOW INDICATED WITH DC PLANNING.
--- NOTE | 2019-01-01 16:18 | NUR ---
FAXED TODAY'S OT NOTES TO [facility] SPOKE WITH WENDIE IN ADM SHE RECEIVED AND STILL AWAITING PT NOTES FROM TODAY AND WILL SUBMIT TO INS. FOR AUTH.
[2019-01-01 16:37] VITALS: BP 101/62
--- NOTE | 2019-01-01 18:33 | NUR ---
ASSUMED PT CARE AT 0700. A&OX4, NO IV PRESENT. NON AMBULATORY. BILAT LOWER EXTREMITIES UNWRAPPEP BY WOUND CARE, THIS NURSE APPLIED MEDICATED LOTION AND REWRAPPED. MOVES LLE A LITTLE THOUGH UNABLE TO MOVE RLE. HAS GOOD APPETITITE TOLERATING PO ANTIBIOTICS WELL. WILL CONT POC.
[2019-01-01 19:59] VITALS: BP 137/80
[2019-01-02 04:44] VITALS: BP 152/97
--- NOTE | 2019-01-02 05:29 | NUR ---
Assumed pt care at 1900. Pt is A/OX4,VSS.Denies pain on assessment.Verbalized desire to dc home today to take care of business instead of SNF will rely to day shift nurse. Lymphedema wraps in place to BLE,dry/flaky skin noted on feet. Contact isolation maintained. Voiding per urinal. esting quietly CPAP in place,will continue to monitor pt.
[2019-01-02 08:30] VITALS: BP 124/64
--- NOTE | 2019-01-02 13:35 | NUR ---
WE GOT AUTH FOR PT TO GO TO [facility] TODAY. CM NOTIFIED PT'S FRIEND FÉLIX DOWELLURRY AND HE SPOKE WITH PT AND PT IS AGREEABLE TO GOING SKILLED FOR A SHORT TIME THEN RETURNING HOME WITH [facility]. PT INDICATED HE HAD SPOKEN WITH ZAMZAM AT [facility] AND THEY HAVE ANOTHER COMPANY SET UP TO PROVIDE SERVICES WHEN HE RETURNS HOME. CM TO FOLLOW INDICATED WITH DC PLANNING.
--- NOTE | 2019-01-02 14:24 | NUR ---
PT A&OX4. PLANS ARE FOR PT TO TRANFER TO [facility] TODAY. PT DOES AGREE TO THIS. NO IV PRESENT. WILL AWAIT FOR TRANSPORTATION INFORMATION OF TIME OF DIRECTOR BUILDING.
--- NOTE | 2019-01-02 15:04 | NUR ---
PT IS TO DC TO [facility] TODAY. [facility] SET UP BETWEEN [phone]. PT AND FRIEND MR. PRYOR ARE AWARE AND AGREEABLE. CHART COPPY ORDERED. ORDERS TO BE FAXED. NURSE GIVEN NUMBER FOR REPORT. NO OTHER CM INTERVENTION INDICATED. CASE CLOSED.
--- NOTE | 2019-01-02 15:05 | NUR ---
PT DISCHARGING TODAY TO [facility] FOR SKILLED STAY FAXED DC ORDERS/SUMMARY TO FACILITY SPOKE WITH WENDIE IN ADM SHE RECEIVED DC ORDERS AND ARRANGED TRANSPORTATION VIA [facility] FOR [phone] TODAY. PT'S FRIEND NOTIFY BY SW AND UNIT NOTIFIED CHART COPY PER US. RN TO CALL REPORT TO [phone].
--- NOTE | 2019-01-02 17:11 | NUR ---
[facility]SPORT[facility] IN TO ASSISTANT MANAGER PT.
--- NOTE | 2019-01-02 17:16 | NUR ---
W/C TRANSPORTATION IN TO PICK PT UP AT THIS TIME. IV REMOVED FROM R FA.
== END 2019-01-02 17:24 | DRG 602 ==
LOC: ER 23:28 → EROBS 12-22 01:33 → 4E 12-22 01:33
PROVIDERS: Emergency Medicine; Internal Medicine; Nurse Practitioner Family; ADMIT Hospitalist
PROC: 5A09357 Assistance with Respiratory Ventilation, Less than 24 Consecutive Hours, Continuous Positive Airway Pressure (ICD-10-PCS; principal; 2018-12-22)
DX: L03.115 Cellulitis of right lower limb (principal); J96.20 Acute and chronic respiratory failure, unspecified whether with hypoxia or hypercapnia; J44.1 Chronic obstructive pulmonary disease with (acute) exacerbation; J44.0 Chronic obstructive pulmonary disease with (acute) lower respiratory infection; G82.20 Paraplegia, unspecified; L97.929 Non-pressure chronic ulcer of unspecified part of left lower leg with unspecified severity; L97.919 Non-pressure chronic ulcer of unspecified part of right lower leg with unspecified severity; J20.9 Acute bronchitis, unspecified; L03.116 Cellulitis of left lower limb; Z60.2 Problems related to living alone; I50.9 Heart failure, unspecified; F17.210 Nicotine dependence, cigarettes, uncomplicated; E11.9 Type 2 diabetes mellitus without complications; F32.9 Major depressive disorder, single episode, unspecified; F41.9 Anxiety disorder, unspecified; E66.01 Morbid (severe) obesity due to excess calories; I11.0 Hypertensive heart disease with heart failure; G40.909 Epilepsy, unspecified, not intractable, without status epilepticus; I87.8 Other specified disorders of veins; I87.2 Venous insufficiency (chronic) (peripheral); E78.5 Hyperlipidemia, unspecified; L85.9 Epidermal thickening, unspecified; Z74.01 Bed confinement status; Z99.3 Dependence on wheelchair; Z86.73 Personal history of transient ischemic attack (TIA), and cerebral infarction without residual deficits; Z79.899 Other long term (current) drug therapy; Z88.8 Allergy status to other drugs, medicaments and biological substances; Z68.39 Body mass index [BMI] 39.0-39.9, adult
CPT/HCPCS: 10084

== ENCOUNTER 2019-01-10 14:13 | Emergency (ER) | payer OTHER ==
[~2019-01-10] VITALS: Ht 188 cm; Wt 143.3 kg
[~2019-01-10 14:13] MED LIST changes: +FLUTICASONE-SA1 EAC4 INH; +NF; +QUETIAPINE FUM100 MG PO; +VENTOLIN HFA 1818 GM INH
[2019-01-10 16:01] VITALS: BP 96/48
== END 2019-01-10 16:01 | disposition home or self-care (01) ==
LOC: ER 14:13
DX: G89.29 Other chronic pain (principal); M79.661 Pain in right lower leg; M79.662 Pain in left lower leg; E11.9 Type 2 diabetes mellitus without complications; I11.0 Hypertensive heart disease with heart failure; I50.9 Heart failure, unspecified; F32.9 Major depressive disorder, single episode, unspecified; F41.9 Anxiety disorder, unspecified; F17.210 Nicotine dependence, cigarettes, uncomplicated; Z88.1 Allergy status to other antibiotic agents; Z86.011 Personal history of benign neoplasm of the brain; Z86.73 Personal history of transient ischemic attack (TIA), and cerebral infarction without residual deficits

== ENCOUNTER 2019-01-12 19:35 | Emergency (ER) | payer OTHER ==
[~2019-01-12] VITALS: Ht 188 cm; Wt 142.9 kg
[2019-01-12] MEDS ORDERED: DOXYCYCLINE 10100 MG PO (21:41)
[2019-01-12 23:45] VITALS: BP 129/78
== END 2019-01-12 23:45 | disposition home or self-care (01) ==
LOC: ER 19:35
DX: S81.811A Laceration without foreign body, right lower leg, initial encounter (principal); E11.9 Type 2 diabetes mellitus without complications; I10 Essential (primary) hypertension; F32.9 Major depressive disorder, single episode, unspecified; F41.9 Anxiety disorder, unspecified; F17.210 Nicotine dependence, cigarettes, uncomplicated; Z86.73 Personal history of transient ischemic attack (TIA), and cerebral infarction without residual deficits; Z86.011 Personal history of benign neoplasm of the brain; Z88.1 Allergy status to other antibiotic agents; W26.8XXA Contact with other sharp object(s), not elsewhere classified, initial encounter; Y92.89 Other specified places as the place of occurrence of the external cause; Y93.89 Activity, other specified; Y99.8 Other external cause status

== ENCOUNTER 2019-02-13 18:28 | Inpatient (IN) | payer OTHER ==
[~2019-02-13] VITALS: Ht 190.5 cm; Wt 129.3 kg
[~2019-02-13 18:28] MED LIST changes: +DOXYCYCLINE 10100 MG PO
[2019-02-13 18:29] VITALS: BP 122/91
[2019-02-13] MEDS ORDERED: TYLENOL EXTRA500 MG PO (19:19)
[2019-02-13] MEDS ORDERED: NAPROSYN500 MG PO (19:19)
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
[2019-02-13 22:15] LABS: ABSOLUTE NEUTROPHILS 7.5 thou/uL (1.4-8.2); BASOPHILS 1.3 % (0.0-2.0); EOSINOPHILS 2.8 % (0.0-3.0); HEMATOCRIT 45.3 % (42.0-52.0); HEMOGLOBIN 15.3 gm/dL (14.0-18.0); LYMPHOCYTES 11.6 % (24.0-44.0); MCH 33.7 pg (26.0-34.0); MCHC 33.8 g/dL (28.0-37.0); MCV 99.7 fL (80.0-100.0); PLATELET COUNT 243 thou/uL (150-400); POLYS 76.3 % (36.0-66.0); RBC 4.55 mil/uL (4.50-6.00); RDW 14.1 % (10.5-14.5); WBC 9.8 thou/uL (4.0-11.0)
[2019-02-13 22:19] LABS: CALCIUM 8.8 mg/dL (8.5-10.1); CREATININE 0.8 mg/dL (0.7-1.3); POTASSIUM 3.9 mmol/L (3.5-5.1)
[2019-02-13 23:59] VITALS: BP 116/57
[2019-02-14 00:24] VITALS: BP 134/74
[2019-02-14 01:28] VITALS: BP 139/96
[2019-02-14 05:16] VITALS: BP 137/88
--- NOTE | 2019-02-14 06:01 | NUR ---
PATIENT TRANSFERRED VIA CART FROM ED AT APPROX. 0100 TODAY. RN ASSISTED WITH INITIAL ASSESSMENT. MEDICATIONS RECONCILED AND SENT TO PHARMACY. NURSE PRACTIONER PLASTIC BOAT BUFFER CONTACTED TO SEE PATIENT. PATIENT IS DROWSY AND SLEEPY. HE IS ABLE TO BE ARROUSED BUT GOES BACK TO SLEEP QUICKLY. PT IS INCONT OF BOWELS. HE USES URINAL BUT NEEDS ASSIST. PT HAS WOUNDS ON LOWER EXTREMITIES. HE WILL BE MONITORED AND REFERRED TO SOCIAL WORK AND CASE MANAGEMENT SINCE HE IS CONCERENED ABOUT NOT BEING ABLE TO GO HOME BY HIMSELF WITHOUT A CAREGIVER. FALL PRECAUTIONS IN PLACE. WILL CONTINUE TO MONITOR
[2019-02-14 09:24] VITALS: BP 120/75
--- NOTE | 2019-02-14 11:20 | NUR ---
Assess due to notification of wound. Pt paraplegic, hx DM, brain tumor, and CVA. Admitted with weakness and pain, recurrent BLE cellulitis-wound care consult pending. No diabetic medications at this time. Pt states trying to "diet" and thinks he has lost 50 lb over a year. He skips breakfast, Meals on Wheels for lunch and sometimes no dinner. If 285 lb is correct bedscale wt, then pt has lost nearly 65 lb/19% loss, however pt questions wt being under 300 lb. Discussed eating healthy, high protein food choices and discouraged skipping 2 meals per day to promote wt loss. Appetite in hospital is good. Continue carb control diet. Low nutrition risk
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
[2019-02-14 18:24] VITALS: BP 115/69
--- NOTE | 2019-02-14 19:17 | NUR ---
DRSG TO BILATERAL LOWER EXTREMITIES CHANGED ORDERED. PT IS COMPLIANT WITH CARE AT THIS TIME. HE IS SORRY FOR CURSING TO ALL STAFF. OT HAD A VERY POSITIVE COVERSATION WITH PT. WILL CONT TO MONITOR.
[2019-02-14 20:01] VITALS: BP 134/80
[2019-02-14 23:10] LABS: GLYCOHEMOGLOBIN (HGB A1C) 5.2 % (4.8-5.6)
--- NOTE | 2019-02-15 02:46 | NUR ---
ASSUMED CARE OF PT AT 1900HRS. PT AOX4 AND LETS NEEDS BE KNOWN. FALL PRECAUTION IN PLACE. PT WAS DROWSY AND SLEPT MOST OF THE SHIFT. PT WAS COMPLIENT THIS SHIFT. VSS AND NO S/S OF ACUTE DISTRESS. WILL CONTINUE TO MONITOR.
[2019-02-15 05:00] VITALS: BP 114/69
[2019-02-15 08:00] VITALS: BP 106/63
--- NOTE | 2019-02-15 10:18 | NUR ---
PT A&OX4, IV INTACT IN R HAND. PT IS A PARAPLEGIC. O2@3L PER NC. SPEECH AIDEN COMPLETE SEE NOTE. PT CONTINUES TO CHOKE ON FOOD/DRINK REFUSING NPO. WILL CONT POC.
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
[2019-02-15 21:20] VITALS: BP 104/66
--- NOTE | 2019-02-16 03:43 | NUR ---
ASSUMED PATIENT CARE AT 1845. VITAL SIGNS STABLE WITH PATIENT HAVING NO COMPLAINTS OF PAIN OR NAUSEA. FULLY ORIENTED, PATIENT IS ABLE TO CALL FOR NEEDS. SOMEWHAT NONCOMPLIANT WITH CARE, PATIENT IS UNWILLING TO COOPERATE WITH SOME TREATMENT MODALITIES. BREATHING STABLE ON HOME DOSAGE OXYGEN AND CPAP EVIDENCED BY ASSESSMENT AND CONTINUOUS SATURATION MONITOR. PATIENT HAS BEEN ABLE TO TOLERATE CPAP FOR MOST OF THE NIGHT. HE HAS ALLOWED NURSING STAFF TO TURN HIM SOMETIMES AND APPLY BARRIER CREAM. WOUND CARE PROVIDED PER PROTOCOL. CONTINUE PLAN OF CARE.
[2019-02-16 04:36] VITALS: BP 115/63
[2019-02-16 08:59] VITALS: BP 114/56
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
--- NOTE | 2019-02-16 15:07 | NUR ---
met with patient and discussed dc planning. patient waiting on numotion to fix his electric wc. he has been waiting for some time sp with [employer] they plan to have a technition there Tuesday between 9-. Sp with patients cargiver service bed rubber to determine if drywall installer avail for tomorrow so with Ghazala at [employer] who reports they can schedule that for tomorrow. Discussed with patient hopsice/pallative care services. Dr Donato also present. Patient is interested in Hospice services at home. He reports he wants to eat reg diet and aware of aspiration. [facility] met with patient. THey reviewed all services and philosphy patient agreeable to [facility] at de. Updated neighbor on above. he reports dtr is of no assistance to patient. At de call [facility] at [phone] and fax orders to [phone] Fax ambulance form on chart to [phone] call [phone] to arrange ambulance for home. Outside DNR on chart original form must go home with patient.
--- NOTE | 2019-02-16 15:12 | NUR ---
FAXED REFERRAL TO [facility] HOSPICE CARE SPOKE WITH YARED CLINICAL DIRECTOR AT [facility] SHE RECEIVED REFERRAL AND HAD A FEW QUESTIONS FOR DINH SO SHE WAS GOING TO CALL ENIO TAO.
--- NOTE | 2019-02-16 16:35 | NUR ---
FAXED OUTSIDE DNR AND WOUND CARE NOTE FROM [facility] TO [facility] RECEIVED CONFIRMATION.
[2019-02-16 19:22] VITALS: BP 104/62
[2019-02-16 23:15] VITALS: BP 120/56
--- NOTE | 2019-02-17 02:46 | NUR ---
ASSUMED PT CARE ON 02/16/19 AT 1910. PT WAS SLEEP WHEN I ENTERED HIS ROOM. PT STATES THAT HE HAS NO COMPLAINTS. PT ASKED QUESTIONS ABOUT THE ORDERED MEDS AND TOOK THEM AFTER I EPLAINED WHAT THEY THEY WERE FOR. PT HAD A MOMNET OF CONFUSION. HE THOUGHT HE WAS ALREADY DISCHARGED AND AT HOME. I ENCOURAGED PT TO RPOSITION BUT HE REFUSED. I TOLD THE PT THAT I NEEDED TO CHECK HIS BLOOD SUGAR AFTER GIVING HIM HIS EVENING MEDS AND HE DECLINED/ REFUSED STATING THAT IT WAS POINTLESS AND THAT HE DID NOT WANT TO TAKE THE INSULIN. PT BED IS IN LOW POSTIION WITH THE CALL LIGHT IN REACH. PT SLEEP WHEN DOING HOURLY ROUNDS. PT CALLED OUT FOR HIS URINAL IN THE 0200 HOUR. WILL CONTINUE TO MONITOR.
[2019-02-17 08:35] VITALS: BP 119/66
[2019-02-17 10:57] VITALS: BP 119/66
--- NOTE | 2019-02-17 12:10 | NUR ---
ASSUMED CARE OF PT AT 0700. CHANGED L AND R LOWER LEG DRESSINGS. L LEG CLEAN, DRY AND INTACT. R LEG STILL MOIST WITH SOME SMALL DRAINAGE. GAVE 3 UNITS OF INSULIN BECAUSE OF BS AT 161. GAVE PT DISCHARGE INSTRUCTIONS AND DNR FORM FOR HOSPICE NURSE. CONTACTED TRANSPORTATION AND GAVE PT MEDICATIONS BACK FROM PHARMACY. PT DISCHARGE PAPERWAORK SIGNED AND PT DISCHARGED TO HOME.
--- NOTE | 2019-02-19 07:55 | HC ---
[facility] [place] [address] CONSULTATION Name: RICARDO ALFONSO Benigno Room #: 433-I [facility]#: [id number] Admission: 02/13/19 Attend Phys: Jame Donato MD Discharge: 02/17/19 Date of : 68 Report #: [id number] THIS REPORT FOR: //name// CC: MARILYN physician/PCP aJme Donato DATE OF SERVICE: 02/14/2019 HISTORY OF PRESENT ILLNESS: This is a 48-year-old male patient who was admitted to the hospital with aspiration pneumonitis. He is noted to have cellulitis to his lower legs and ulcers to his right leg and I have been asked to see him with regard to wound care. The patient has been apparently somewhat cooperative with the following dietary restrictions to include clear liquids due to his repeated aspiration issues. PAST MEDICAL HISTORY: Significant for previous brain tumor, status post resection. He has a ventriculoperitoneal shunt, history of seizures, baclofen pump, diabetes, previous hemorrhagic stroke, paraplegia, depression, anxiety, hypertension, bowel incontinence, congestive heart failure. SOCIAL HISTORY: The patient is a current daily cigarette smoker, 2 packs per day for 30 years. No alcohol use. FAMILY HISTORY: Noncontributory. MEDICATIONS: Include albuterol, Advair Diskus, quetiapine, Lomotil, desmopressin, alprazolam, atorvastatin, escitalopram, and metoprolol. ALLERGIES: VANCOMYCIN. REVIEW OF SYSTEMS: CONSTITUTIONAL: The patient denies fever or chills. ENT: The patient denies earache, nasal drainage, sore throat. CARDIOVASCULAR: The patient denies chest pain or palpitations. PULMONARY: The patient does complain of cough and mild shortness of breath. GASTROINTESTINAL: The patient denies nausea, vomiting, diarrhea or abdominal pain. ORTHOPEDIC: The patient is aware of the ulcers on his legs. Denies pain associated with this. Other systems in a 14-point review of systems are negative. PHYSICAL EXAMINATION: VITAL SIGNS: At this time include temperature 37.2, pulse 118, respiratory rate 20, blood pressure 120/75. GENERAL: This is a chronically ill-appearing male patient who appears to be in no obvious distress. [facility] [address] [place] [address] CONSULTATION Name: RICARDO ALFONSO Room #: 433-I [facility]#: [id number] Admission: 02/13/19 Attend Phys: Jame Donato MD Discharge: 02/17/19 Date of : 68 Report #: [id number] HEENT: Head is normocephalic. Nose and throat are clear. NECK: Supple. LUNGS: Diminished. HEART: Regular rhythm. ABDOMEN: Soft. LOWER EXTREMITIES: Demonstrate swelling with 2-3+ edema of the both legs. Moderate erythema and then some ulcerations to the right lower leg appear that relatively superficial and venous in origin. NEUROLOGIC: The patient is alert, does move his upper extremities. LABORATORY DATA: Sodium 140, potassium 3.9, chloride 106, CO2 of 29, BUN 11, creatinine 0.8, glucose 143, calcium is 8.8. White blood cell count 9.8 with a hemoglobin of 15.3, hematocrit of 45.3. CLINICAL IMPRESSION: 1. Cellulitis, bilateral lower extremities. 2. Lymphedema and venous insufficiency of lower extremities, venous ulcerations to the right lower extremity. RECOMMENDATIONS: We will start Silvadene, Xeroform, ABD, Kerlix to the right lower extremity. Recommend elevation of his legs, antibiotics pending cultures. Continuation of current medications, nutrition, PT, OT as able. I appreciate being asked to see him in consultation. <ELECTRONICALLY SIGNED> By: Efraín Currie MD 02/19/19 0755 1151 2305 Efraín Currie MD /nt
== END 2019-02-17 11:46 | disposition home or self-care (01) | DRG 602 ==
LOC: ER 18:28 → 4S 22:19 → EROBS 22:19 → 4S 02-14 00:27 → ENTRNSPT 02-15 16:13 → CMPTRNSPT 02-16 12:11 → 4S 02-17 11:46
PROVIDERS: Emergency Medicine; Nurse Practitioner; ADMIT Internal Medicine
PROC: 5A09357 Assistance with Respiratory Ventilation, Less than 24 Consecutive Hours, Continuous Positive Airway Pressure (ICD-10-PCS; principal; 2019-02-14)
PROC: 5A09357 Assistance with Respiratory Ventilation, Less than 24 Consecutive Hours, Continuous Positive Airway Pressure (ICD-10-PCS; 2019-02-15)
PROC: 5A09357 Assistance with Respiratory Ventilation, Less than 24 Consecutive Hours, Continuous Positive Airway Pressure (ICD-10-PCS; 2019-02-16)
DX: L03.116 Cellulitis of left lower limb (principal); E43 Unspecified severe protein-calorie malnutrition; G82.20 Paraplegia, unspecified; L03.115 Cellulitis of right lower limb; E66.01 Morbid (severe) obesity due to excess calories; L97.519 Non-pressure chronic ulcer of other part of right foot with unspecified severity; E11.9 Type 2 diabetes mellitus without complications; F32.9 Major depressive disorder, single episode, unspecified; F41.9 Anxiety disorder, unspecified; I50.9 Heart failure, unspecified; I89.0 Lymphedema, not elsewhere classified; F17.210 Nicotine dependence, cigarettes, uncomplicated; D49.6 Neoplasm of unspecified behavior of brain; I11.0 Hypertensive heart disease with heart failure; I87.8 Other specified disorders of veins; L30.9 Dermatitis, unspecified; Z74.1 Need for assistance with personal care; I27.20 Pulmonary hypertension, unspecified; Z60.2 Problems related to living alone; Z68.35 Body mass index [BMI] 35.0-35.9, adult; Z68.37 Body mass index [BMI] 37.0-37.9, adult; Z86.73 Personal history of transient ischemic attack (TIA), and cerebral infarction without residual deficits; Z88.1 Allergy status to other antibiotic agents; Z79.899 Other long term (current) drug therapy
CPT/HCPCS: 10195

== ENCOUNTER 2019-05-08 20:15 | Emergency (ER) | payer OTHER ==
[~2019-05-08] VITALS: Ht 188 cm; Wt 136.1 kg
[~2019-05-08 20:15] MED LIST changes: +NAPROSYN500 MG PO; +TYLENOL EXTRA500 MG PO
[2019-05-09 00:36] VITALS: BP 138/78
== END 2019-05-09 00:38 | disposition home or self-care (01) ==
LOC: ER 20:15
DX: H57.13 Ocular pain, bilateral (principal); L28.0 Lichen simplex chronicus; I11.0 Hypertensive heart disease with heart failure; I50.9 Heart failure, unspecified; F17.210 Nicotine dependence, cigarettes, uncomplicated; F41.9 Anxiety disorder, unspecified; F32.9 Major depressive disorder, single episode, unspecified; Z86.73 Personal history of transient ischemic attack (TIA), and cerebral infarction without residual deficits

== ENCOUNTER 2020-11-29 16:18 | Inpatient (IN) | payer OTHER ==
[~2020-11-29] VITALS: Ht 188 cm; Wt 138.9 kg
--- NOTE | ~2020-11-29 | EMS ---
[place] [id number] EMS Patient Care Report Name: RICARDO ALFONSO Room #: REG [facility]#: [id number] Admission: 11/29/20 Attend Phys: Discharge: Date of : 68 Report #: [id number] THIS REPORT FOR: //name// Report Transmitted: 11/29/2020 15:49 EMS Care Summary [place], [place]/[facility] Incident [id number] @ 11/29/2020 15:32 Incident Location [address] [place] [address] Patient RICARDO ALFONSO Male, 50 Years 1970 Patient Address [address] [place] [address] Patient History Chronic Obstructive Pulmonary Disease (COPD),Hypertension (HTN),Morbid Obesity,Brain Tumor,Cellulitis, Patient Allergies No known allergies, Patient Medications Prednisone, Alprazolam, Gabapentin, Metoprolol, Desmopressin (DDAVP), Lexapro, Aspirin, Quetiapine, Atorvastatin, Chief Complaint PAIN I R LEG FROM HIP TO FOOT Disposition Transported No Lights/[place] Dispatch Reason Sick Person Transported To [facility] Narrative REC'D CALL FOR SICK. ON ARRIVAL FOUND PT LAYING IN HIS HOSPITAL BED IN FRONT ROOM OF THE RESIDENCE AT ADDRESS. PT COMLAINED OF PAIN IN R LEG FROM HIP TO [address] [address] EMS Patient Care Report Name: RICARDO ALFONSO Room #: REG [facility]#: [id number] Admission: 11/29/20 Attend Phys: Discharge: Date of : 68 Report #: [id number] FOOT, RATING 8/10, STARTED ACUTELY THIS AM. PT DENIES TRAUMA. PT REQUESTS TRANSPORT TO [facility]. PT IS BED RIDDEN AT HOME, APPEARS TO HAVE LITTLE TO NO HELP IN THE HOME. PT WAS PLEASANT AND COOPERATIVE. MEGAMOVER USED TO SLIDE PT FROM HIS BED TO COT. PT LOADED INTO AMBO. PT MONITORED CONTINUOUSLY DURING TRANSPORT, PT REMAINED STABLE WITH NO NEW COMPLAINTS. PT CARE PASSED TO IN FLIGHT REFUELING OPERATOR. Initial Vitals @15:50P: 121,R: 20,BP: 145/80, @15:44P: 118,R: 18,BP: 117/84,Pain: 8/10,GCS: 15,Glucose: 105,SpO2: 89,Revised Trauma: 12, @16:10P: 114,R: 20,BP: 109/72,Pain: 8/10,GCS: 15,SpO2: 94,Revised Trauma: 12,OR Suspected: false Assessments @15:44MENTAL:No Abnormalities,SKIN:Other,HEENT:Head/Face: No Abnormalities,Neck/Airway: No Abnormalities,LUNG SOUNDS:General: No Abnormalities,ABDOMEN:General: No Abnormalities,PELVIS//GI:No Abnormalities,EXTREMITIES:Right Leg: Other,Capillary Refill: Right Upper: 3 Sec,Left Arm: No Abnormalities,Right Arm: No Abnormalities,Left Leg: No Abnormalities,PULSE:Radial: 3+ Bounding,NEURO:No Abnormalities,@16:01MENTAL:No Abnormalities,SKIN:No Abnormalities,HEENT:Head/Face: No Abnormalities,Eyes: No Abnormalities,Neck/Airway: No Abnormalities,LUNG SOUNDS:General: No Abnormalities,ABDOMEN:General: No Abnormalities,PELVIS//GI:No Abnormalities,EXTREMITIES:Capillary Refill: Right Upper: 3 Sec,Left Arm: No Abnormalities,Right Arm: No Abnormalities,Left Leg: No Abnormalities,Right Leg: No Abnormalities,PULSE:Radial: 3+ Bounding,NEURO:No Abnormalities, Impression Extremity Pain Procedures @15:40ALS AssessmentResponse: UnchangedSucceeded@16:05StretcherResponse: Unchanged@15:453-Lead ECGResponse: UnchangedSucceeded@15:45Oxygen FlowRate: 4 Device: Nasal Cannula (NC) Response: ImprovedSucceeded Timeline 15:29,Call Received 15:29,Dispatch Notified 15:32,Dispatched 15:34,En Route 15:38,On Scene 15:40,At Patient 15:40,ALS Assessment,Response: UnchangedSucceeded, 15:44,BP: 117/84 M,PULSE: 118,RR: 18 R,SPO2: 89 Ox,ETCO2: ,B,PAIN: 8,GCS: 15, 15:45,Oxygen FlowRate: 4 Device: Nasal Cannula (NC) Response: ImprovedSucceeded, [facility] [address] [place] [address] EMS Patient Care Report Name: NATYRICARDO Room #: REG [facility]#: [id number] Admission: 11/29/20 Attend Phys: Discharge: Date of : 68 Report #: [id number] 15:45,3-Lead ECG,Response: UnchangedSucceeded, 15:50,BP: 145/80 M,PULSE: 121,RR: 20 R,SPO2: Ox,ETCO2: ,BG: ,PAIN: ,GCS: , 15:57,Depart Scene 16:05,Stretcher,Response: Unchanged 16:10,BP: 109/72 M,PULSE: 114,RR: 20 R,SPO2: 94 Ox,ETCO2: ,BG: ,PAIN: 8,GCS: 15, 16:11,At Destination 16:39,Call Closed Disclaimer v1.1 Copyright 2020 [employer] This EMS Care Summary contains data elements from the applicable legal record (which may be displayed differently). It is designed to provide pertinent information for the following purposes: continuity of care, clinical quality, and state data reporting. The complete legal record is available to ED staff and administrators of the receiving hospital in [employer]'s Patient Tracker. All data is provided "as is."
[2020-11-29 16:18] VITALS: BP 127/78
[2020-11-29 16:52] LABS: ABSOLUTE NEUTROPHILS 10.5 thou/uL (1.4-8.2); BASOPHILS 0.9 % (0.0-2.0); EOSINOPHILS 2.5 % (0.0-3.0); HEMATOCRIT 46.1 % (42.0-52.0); HEMOGLOBIN 15.7 gm/dL (14.0-18.0); LYMPHOCYTES 9.9 % (24.0-44.0); MCV 94.1 fL (80.0-100.0); MONOCYTES 6.5 % (1.0-8.0); PLATELET COUNT 293 thou/uL (150-400); POLYS 80.2 % (36.0-66.0); RDW 14.8 % (10.5-14.5); WBC 13.1 thou/uL (4.0-11.0)
[2020-11-29 17:05] LABS: CALCIUM 8.7 mg/dL (8.5-10.1); POTASSIUM 3.6 mmol/L (3.5-5.1)
[2020-11-29 17:21] LABS: ALBUMIN 2.7 g/dL (3.4-5.0); TOTAL BILIRUBIN 0.4 mg/dL (0.2-1.0); TOTAL PROTEIN 6.9 g/dL (6.4-8.2)
[2020-11-29 19:30] LABS: CHOLESTEROL 164 mg/dL (<200); HDL CHOLESTEROL 31 mg/dL (>40); LDL CHOLESTEROL 105 mg/dL (<100); TC:HDL 5.3 Ratio (Not establshd); TRIGLYCERIDE 141 mg/dL (<150); VLDL 28 mg/dL (<40)
[2020-11-29 19:55] LABS: FOLIC ACID 6.4 ng/mL (8.6-58.9)
[2020-11-29 23:22] VITALS: BP 166/89
[2020-11-30 00:04] VITALS: BP 142/112
[2020-11-30 00:40] VITALS: BP 129/90
--- NOTE | 2020-11-30 04:00 | NUR ---
new admission d/t right leg cellulitis. patient aox4 forgetful at times. patient is hyper talkative.patient educating on drinking water excessively d/t patient has a hx. of chf. patient on 3 l of oxygen soa with activities noted. patient has ble celluties, ble are black in color with minimum discharge with s/s of infection. patient skin is dry and unkept.patient wears c pap at night at home. patient needs maximum assistance with adl, bed mobility, transfer and toileting. patient continues to say he lives independtly at home. patient will give us c pap settings today from home.fall precaution in place. patient in bed asleep at this time breathing regular and unlaboured.
[2020-11-30 05:48] LABS: HEMATOCRIT 46.1 % (42.0-52.0); HEMOGLOBIN 15.3 gm/dL (14.0-18.0); MCH 31.8 pg (26.0-34.0); MCHC 33.1 g/dL (28.0-37.0); MCV 96.1 fL (80.0-100.0); RBC 4.8 mil/uL (4.50-6.00); WBC 12.4 thou/uL (4.0-11.0)
[2020-11-30 06:07] LABS: CALCIUM 8.4 mg/dL (8.5-10.1); CREATININE 1.1 mg/dL (0.7-1.3); POTASSIUM 3.7 mmol/L (3.5-5.1)
[2020-11-30 08:00] VITALS: BP 146/79
[2020-11-30 16:00] VITALS: BP 138/76
--- NOTE | 2020-11-30 16:30 | NUR ---
Assumed pt care at 7am.Pt in bed alert and oriented x4 but angry and verbally abusive.Rn encouraged pt to act right and respect staff.When pt was loud and won't follow directions,Dr Crisostomo notified and he wanted pt sign AMA before leaving the hospital.When [place] paper was given to pt,he change his mind and apologized to this rn .Pt has been cooperate with staff and well behaved. Pt has moderate bm this shift and complete bed cahnge done with pericare. Dr Urena and Kranthi rounded on pt and new orders noted.Pt has o2 on at 3liter continuously.Will continue to monitor.
[2020-11-30 19:54] VITALS: BP 161/108
[2020-12-01] VITALS (20 sets, daily range): BP systolic 120–206; BP diastolic 73–157
--- NOTE | 2020-12-01 02:49 | NUR ---
PT CARE ASSUMED WITH PT IN BED AT SHIFT CHANGE.PT IS A/O X4.PT IS MAXIMUM ASSIST.PT DRINKING EXCESS WATER AND HAS A HX CHF.PT IS ON 3L OF O2 VIA NC.RL NOTED COMING OUT OF OPENING ON RT FOOT AND DR FARMER NOTIFIED AND SAW PT.SILVER SULDADINE CREAM ORDERED AND APPLIED AND DRESSING DONE.DR TEAM WILL REVIEW PT BLE.LUNG SOUNDS WITH WHEEZES.PT USES CPAP AT HOME AT NIGHT.IV ACCESS ON LT AC SL.WILL CONTINUE TO MONITOR PER POC
--- NOTE | 2020-12-01 11:06 | NUR ---
ORDERS RECEIVED FOR PT EVAL AND TREAT. Pt FROM HOME ALONE BUT HAS CAREGIVERS FOR 3-4 HOURS/DAY. USES TILT IN SPACE W/C W/ LIFT DEVICE FOR TRANSFERS. Pt HAVING DIFFICULTY W/ WORD FINDING, CONFUSED TODAY. ALSO DRY HEAVING WHILE PT IN ROOM AND RECENTLY VOMITED PER RN AND OT. Pt HAS BILAT LE PARESIS S/P CVA AND BRAIN TUMOR RESECTION. CONFIRMED PLOF W/ Pt FROM GATHERED INFO FROM PRIOR STAY AT HOSPITAL. Pt STATED 'I'M CRIPPLED' AND THAT HE DOESN'T WALK. REPEATEDLY ASKING FOR WATER AND SMALL AMOUNTS GIVEN (RN NOTIFIED) D/T FLUID RESTRICTION. Pt AT BASELINE LEVEL OF FUNCTIONAL MOBILITY SO NO ACUTE PT WARRANTED AT THIS TIME. ACUTE PT TO SIGN OFF.
--- NOTE | 2020-12-01 12:37 | NUR ---
Assessed d/t wound. Pt with hx brain tumor s/p resection, paraplegia, CVA, DMII. Admitted for tx LLE cellulitis. IV ABX in place. S/S infection to open area R foot, wound care consulted. Labs Na 147, BUN 5, Alb 2.7, Vit D pending. No recnt A1c or POC glucose. 100% intakes at meals on regular diet this admission. RD unable to visit with pt d/t asleep x3 attempted visits. Hx RD discussion r/t healthy options at meals and appropriate meal pattern for weight loss 2018. Low nutrition risk at this time.
--- NOTE | 2020-12-01 16:41 | NUR ---
PT ADMITTED RELATED TO CELLULITIS, WOUND INFECTION OF RIGHT FOOT. CM REVIEWED CHART AND SPOKE WITH CARE TEAM. CM ATTEMPTED TO VISIT WITH PT THIS AM BUT HE ASKED FOR HIS URNAL. CM ATTAMPTED FOLLOW UP VISIT WITH PT BUT HE WAS SLEEPING. CM SPOKE WITH PT'S FRIEND/CAREGIVER FÉLIX PRYOR . HE INDICATED THAT PT RESIDES IN A HOUSE ALONE AND THAT HE LIVES [place]EXT[place]. HE INDICATED THAT PT HAS A NEWER ELECTRIC WC THAT IS CURRENTLY BROKEN WAITING ON NEW PART THROUGH [employer]. HE INDICATED THAT PT HAS A MANUAL SIT TO STAND, MANUAL WC, AND A HOSPITAL BED FOR HOME USE. PT'S PCP IS DR. DOMINGUEZ WITH [facility] WHO VISITS PT IN HIS HOME. PT ALSO HAS CPAP. PT HAS HCBS BUT FÉLIX ISN'T CERTAIN WHAT COMPANY THEY ARE THROUGH AT THE MOMENT INDICATED THAT STAFFING IS INCONSISTANT AND UNRELIABLE. PT HAS ISSUES WITH BED BUGS AND THE EDGE PEST CONTROL IS TO BE OUT TO TREAT HOUSE IN THE NEAR FUTURE. MR. PRYOR HELPS WITH MEAL PREP, ERRANDS, AND SOME PERSONAL CARES HE IS WILLING/NEEDING. HE INDICATED THAT PT HAS BEEN HOTLINED IN PAST. NO CURRENT HH SERVICES. PT ON IV ZOSYN WITH WC FOLLOWING. CM FOLLOWING REGARDING DC NEEDS. [facility] CALLED THIS EVENING PT TO TRANSFER TO ICU. CM FOLLOWING REGARDING DC PLANNING.
[2020-12-01 16:47] LABS: BE(vivo) 4.6 mmol/L (-2 to +3); HCO3 29.4 mmol/L (22.0-26.0); PCO2 43.7 mmHg (35.0-45.0); PO2 56.3 mmHg (80.0-100.0); pH 7.446 (7.360-7.450); sO2 90.4 % (92.0-98.0)
[2020-12-01 17:10] LABS: ABSOLUTE NEUTROPHILS 12.6 thou/uL (1.4-8.2); BASOPHILS 0.9 % (0.0-2.0); EOSINOPHILS 0.4 % (0.0-3.0); HEMATOCRIT 53.1 % (42.0-52.0); LYMPHOCYTES 8.8 % (24.0-44.0); MCV 96.8 fL (80.0-100.0); MONOCYTES 7.9 % (1.0-8.0); PLATELET COUNT 359 thou/uL (150-400); RBC 5.49 mil/uL (4.50-6.00); RDW 15.4 % (10.5-14.5); WBC 15.4 thou/uL (4.0-11.0)
[2020-12-01 17:26] LABS: ALBUMIN 3.1 g/dL (3.4-5.0); ANION GAP 9 mmol/L (7-16); BUN 11 mg/dL (7-18); CALCIUM 9.4 mg/dL (8.5-10.1); CHLORIDE 129 mmol/L (98-107); CO2 35 mmol/L (21-32); CREATININE 1.4 mg/dL (0.7-1.3); GLUCOSE 116 mg/dL (74-106); MAGNESIUM 3.3 mg/dL (1.8-2.4); POTASSIUM 3.7 mmol/L (3.5-5.1); SGOT 30 U/L (15-37); SGPT 24 U/L (30-65); TOTAL BILIRUBIN 0.4 mg/dL (0.2-1.0); TOTAL PROTEIN 8.3 g/dL (6.4-8.2); TROPONIN-I <0.06 ng/mL (<0.06)
[2020-12-01 17:36] LABS: SODIUM 173 mmol/L (136-145)
--- NOTE | 2020-12-01 17:53 | NUR ---
RN PAGED RT AND PHYSICIAN. PATIENT CONFUSED, FRIEND AT BEDSIDE, POC DONE WAS 113, VITALS TACHY AND O2 DESATING TO 87 ON 3L NASAL CANULA, O2 INCREASED TO 6L PATIENT RANGING FROM 87-98, RT NOW AT BEDSIDE, IV PLACED LT FORARM, PATIENT ON 8L WITH BY RT IN ROOM, [facility] RESPONSE CALLED AT 1637. ORDERS RECEIVED TO GIVE 40MG IV LASIX NOW, ABG'S, LABS DRAWN, AND TRANSFER TO ICU. WILL DO A CHEST XRAY. REPORT GIVEN TO ISMAEL TENORIO IN ICU.
--- NOTE | 2020-12-01 18:05 | NUR ---
PATIENT IN ICU FROM 4W, DROWSY AND OCCASIONALLY AWAKENS. ORIENTED TO PERSON BUT OTHERWISE CONFUSE, IRRITABLE AND FUSSY C/O WANTING TO URINATE., KENNEDY CATHETER PLACED AND ADEQUATE OUTPUT NOTED. LAB CALLED AND STATED CRITICAL NA OF 173, DR. ZIMMERMAN PAGED AND NO CALL BACK RECEIVED. DR. BYERS PAGED AND CALLED BACK AND RESULTS REPORTED AND NEW ORDERS RECEIVED. PATIENT'S FRIEND CALLED AND VISITING HOURS RELAYED TO HIM AND STATED TO CALL WITH CHANGES. WILL CONTINUE TO MONITOR CLOSELY, REPEAT LABS.
[2020-12-01 18:21] LABS: CALCIUM 9.7 mg/dL (8.5-10.1); CREATININE 1.4 mg/dL (0.7-1.3); POTASSIUM 3.7 mmol/L (3.5-5.1)
--- NOTE | 2020-12-01 19:04 | NUR ---
Pt. o2 sats declined-VULCANIZING PRESS OPERATOR activated-see flowsheet
--- NOTE | 2020-12-01 21:42 | NUR ---
Pt kept desaturating to 86-88% despite 11 L face mask. Pt has hx of obstructive sleep apnea. Simple CPAP did not help; pt placed on Bipap with AVAPS setting, Tv 550, rate 20, EPAP 8, and 50%. O2 Saturation now 97%, pt more comfortable.
--- NOTE | 2020-12-01 22:44 | NUR ---
Pt remains extremely lethargic, difficult to arouse. Bipap settings changed to AVAPS Tv 550, FiO2 50%, rate 22, and EPAP 11.
[2020-12-02] VITALS (27 sets, daily range): BP systolic 120–189; BP diastolic 81–149
--- NOTE | 2020-12-02 04:08 | NUR ---
Pt awake and yelling for "a coke" and constanly repeating word "please". Will not leave bipap mask on, so changed to 11 L face mask, but sat dropped to 89-90%. Monitor sinus tach with rates 127-135. Remains hypertensive.
--- NOTE | 2020-12-02 07:21 | EKG ---
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 : 1970 Requested By: Rubén Crisostomo Order Number: [id number] MD: Stanley Cardona Measurements Intervals [place] Rate: 122 P: 55 OK: 152 QRS: 49 QRSD: 89 T: 88 QT: 330 QTc: 470 Interpretive Statements Sinus tachycardia Probable left atrial enlargement Borderline low voltage, extremity leads Baseline wander in lead(s) V4 Compared to ECG 12/22/2018 01:15:47 Sinus rhythm no longer present Electronically Signed On 12-02-2020 7:21:21 CDT by Stanley Cardona [email or web address] <ELECTRONICALLY SIGNED> By: Satnley Cardona MD, [facility] 12/02/20 0721 1650 1650 Stanley Cardona MD, [facility] /EPI
--- NOTE | 2020-12-02 07:54 | NUR ---
ORDERS FOR PULSE LEVAGE TO BILATERAL LOWER LEGS HOWEVER Pt TRANSFERRED TO ICU. WILL HOLD OFF ON PULSE AND AWAIT NEW ORDERS WHEN APPROPRIATE AND Pt CAN TOLERATE
--- NOTE | 2020-12-02 08:50 | HC ---
[facility] [place] [address] CONSULTATION Name: RICARDO ALFONSO Room #: 248-P [facility] IN ..#: [id number] Admission: 11/29/20 Attend Phys: Rubén Crisostomo MD Discharge: Date of : 68 Report #: [id number] THIS REPORT FOR: cc: FAM - No family physician/PCP FAM - No family physician/PCP Rasta Ham MD ~ DATE OF SERVICE: 11/30/2020 WOUND CARE CONSULTATION NOTE REASON FOR CONSULTATION: Cellulitis of both lower extremities. The patient with paraplegia and poor hygiene. HISTORY OF PRESENT ILLNESS: The patient is a 50-year-old gentleman admitted for cellulitis of the lower extremities. The patient is immobile and paraplegic due to excision of a brain tumor about 5 years ago. He has been wheelchair bound. He lives alone. Due to his immobility and weakness, the patient is not able to care well for his lower extremities. He presented to the Emergency Room with dry skin of the lower extremities with "layers of dirt and pink skin." There were also maggots seen. Wound care was consulted for his leg wounds. PAST MEDICAL HISTORY: History of brain tumor excision, immobility, COPD, morbid obesity. He has had trouble with the legs in the past. History of seizures, history of baclofen pump. ALLERGIES: VANCOMYCIN. MEDICATIONS: See chart. PHYSICAL EXAMINATION: GENERAL: This is a chronically ill-appearing 50-year-old gentleman who is alert, pleasant and conversant. Respirations are unlabored. HEENT: Mucous membranes are soft. ABDOMEN: Obese and soft. EXTREMITIES: Examination of the lower extremities shows evidence of bilateral chronic venous stasis. There is dry crusting of the skin of both legs with heavy layer of quantified skin and debris. There are no obvious open wounds; however, there is slight moisture between the toes. No maggots are seen. Legs are somewhat tender to touch with some inflammation. IMPRESSION: 1. Obesity. 2. Tobaccoism. 3. Paraplegia and immobility secondary to brain tumor surgery. 4. Cellulitis of both lower legs with heavy buildup of dry crusted skin and exudate, no obvious open wounds. Cellulitis due to poor hygiene. [facility] [address] [place] [address] CONSULTATION Name: RICARDO ALFONSO Benigno Room #: 248-P [facility] IN ..#: [id number] Admission: 11/29/20 Attend Phys: Rubén Crisostomo MD Discharge: Date of : 68 Report #: [id number] PLAN: IV antibiotics, piperacillin; in order to soften up the crescent residue of the legs, will order Silvadene 1%, Xeroform and a Kerlix wrap to be changed daily. Once the legs have been moisturized, sanitize with Silvadene and some gentle debridement with washcloth or abrasion with gauze can be done. We will have the nurse place Silvadene gauze dressing between the toes. Wound care team will follow. <ELECTRONICALLY SIGNED> By: Rasta Ham MD 12/02/20 0850 1224 2129 Rasta Ham MD /nt
[2020-12-02 10:03] LABS: CALCIUM 9.1 mg/dL (8.5-10.1); CREATININE 1.8 mg/dL (0.7-1.3); POTASSIUM 3.4 mmol/L (3.5-5.1)
--- NOTE | 2020-12-02 10:20 | NUR ---
Change in nutrition status, pt transferred to ICU
--- NOTE | 2020-12-02 10:30 | NUR ---
report received from ISMAEL Gutierres. care assumed. pt repetitively yelling same statments, why am I moving, why am I moving, why am I moving? providing support to pt when moving to another room.
--- NOTE | 2020-12-02 10:34 | NUR ---
pt folate and vitamin D depleted, recommend supplementation
--- NOTE | 2020-12-02 11:55 | NUR ---
1100HRS - PT SEEN YELLING AND SCREAMING, "I'M TRYING TO GET OUT OF BED! I NEED TO, I NEED TO, I NEED TO GET TO, I NEED TO GET TO, I NEED TO GET TOO... DAMMIT!" HE WAS ABLE TO REACHED OVER THE BED RAIL AND DOPPED IT DOWN TO MAKE AN ATTEMPT TO GET OUT OF BED. PT ALSO PULLED OFF HIS SIMPLE O2 MASK SEVERAL TIMES. O2 DESAT TO 84%. WAS ABLE TO REAPPLY AND BRING HIS O2 TO 94%. 1115HRS - PT PULLED OFF HIS MONITOR PATCHES. WAS ABLE TO REPLACE AND REAPPLY. MADE AN ATTEMPT TO REDIRECT PT 1135HRS - PT PULLED OFF HIS SIMPLE O2 MASK AGAIN 1145HRS - PT AGAIN SEEN TRYING TO MAKE ANOTHER ATTEMPT TO DROP DOWN THE SIDE RAIL BY REACHING OVER IT. PT WAS REDIRECTED AND REMINDED TO NOT TO GET OUT OF BED. PT AGAIN SAID, "I'M SORRY. I'M TRYING TO GET TO, I'M TRYING TO GET TO, I'M TRYING TO GET TO, I'M TRYING TO GET TO, I'M TRYING TO GET TO, I'M TRYING TO GET TO... DAMMIT!" 1155HRS - PT PULLED OUT HIS IV FROM L FOREARM. DRSG APPLIED. 1120HRS - PT PULLED OFF HIS B/P CUFF AND PULS OX SENSOR. WAS ABLE TO RE APPLY
--- NOTE | 2020-12-02 12:13 | NUR ---
1113HRS - PT PULLED OFF HIS MONITOR LEADS, PULLED OFF HIS SIMPLE O2 MASK, PULLED OFF HIS B/P CUFF, AND SEEN REACHING OVER THE BED RAILS GRABING IV POLE WIH PUMP.
--- NOTE | 2020-12-02 12:13 | NUR ---
WOUND CARE F/U; ROUNDING WITH DR JASON AND SIENA ESCALANTE ADOBE BLOCK MAKER TODAY. THIS IS THE FIRST TIME ONDINA SEEN THIS PATIENT THE PATIENT HAS ERYTHEMA TO THE BILATERAL LE, WITH A SMALL AMOUNT OF WEEPING WITH A SLIGHT YELLOW TINGED DRAINAGE. TENDER TO PATIENT. RECOMMENDATIUONS; DR JASON ORDERED XEROFORM GAUZE, ABD,KERLIX,LAURA WRAPS DISCUSSED WITH ISMAEL
--- NOTE | 2020-12-02 12:16 | NUR ---
1115HRS - PT PLACED IN RESTRAINTS.
--- NOTE | 2020-12-02 18:00 | NUR ---
pt progressively desating lower related to sleep apnea. RT replaced pt on bipap with avaps mode. tv-550, rate-20 intermittently breathing above set rate to 38, av63-358%, epap-11. resting quietly at this time.
[2020-12-03] VITALS (16 sets, daily range): BP systolic 115–147; BP diastolic 63–110
--- NOTE | 2020-12-03 03:58 | NUR ---
ASSUMED CARE OF PATIENT AT 1900. PATIENT ANXIOUS, THIRSTY, RESTLESS, THICKENED WATER PROVIDED, REORIENTED. WORE BIPAP ALL NIGHT, MUCH MORE ALERT. RESTRAINTS REMOVED AT 0400. EDUCATED ABOUT KEEPING HIS O2 ON AND IV FLUIDS RUNNING. PROGRESSING TOWARDS POC GOALS.
[2020-12-03 07:19] LABS: HEMATOCRIT 50.3 % (42.0-52.0); MCH 31.5 pg (26.0-34.0); MCHC 31.8 g/dL (28.0-37.0); MCV 99.1 fL (80.0-100.0); RBC 5.07 mil/uL (4.50-6.00); RDW 15.9 % (10.5-14.5); WBC 14.8 thou/uL (4.0-11.0)
[2020-12-03 07:37] LABS: CALCIUM 8.2 mg/dL (8.5-10.1); CREATININE 1.6 mg/dL (0.7-1.3); POTASSIUM 3.4 mmol/L (3.5-5.1)
[2020-12-04] VITALS (10 sets, daily range): BP systolic 102–127; BP diastolic 62–89
[2020-12-04 06:06] LABS: HEMATOCRIT 45.4 % (42.0-52.0); HEMOGLOBIN 14.3 gm/dL (14.0-18.0); MCHC 31.4 g/dL (28.0-37.0); MCV 98.7 fL (80.0-100.0); RBC 4.6 mil/uL (4.50-6.00)
--- NOTE | 2020-12-04 06:30 | NUR ---
Pt alert, forgetful and confused. Low grade temp. Monitor showing SR. Pt slept w/o difficulty with Bipap mask on. Tolerated po fluids. Oliguria. No BM. PIV and espinosa intact. D5W infusing at 125ml/hr. BLE dressings CDI. CHG bath given. Jocelyn and espinosa care provided.
[2020-12-04 06:47] LABS: CALCIUM 8.3 mg/dL (8.5-10.1); CREATININE 1.3 mg/dL (0.7-1.3); MAGNESIUM 2.8 mg/dL (1.8-2.4); POTASSIUM 3.6 mmol/L (3.5-5.1)
--- NOTE | 2020-12-04 07:15 | NUR ---
Report given to oncoming RN
--- NOTE | 2020-12-04 14:10 | NUR ---
WOUND CARE F/U; ROUNDING TODAY WITH DR TYE JASON AND SIENA ESCALANTE NP. THE PATIENT HAS LOWER EXT'S COVERED WITH THICK ACUMULATED SLOUGHED SKIN CELLS. TODAY AMLACTIN LOTION WAS ORDERED WELL PULSE LAVAGE TREATMENTS. NO WOUNDS ARE IDENTIFIED AT THIS POINT. RECCOMMENDATIONS; -AMLACTIN LOTION, XEROFORM, ABD, KERLIX LAURA WRAP BILATERALL PER MD ORDERS.
--- NOTE | 2020-12-04 15:06 | NUR ---
SNF referrals discussed with Johnson and he talked with Casey about it. Pt is agreeable. Referral sent to [facility] as they want to stay close to the hospital. Pt also has a baclofen pump that needs refilled (per the pain clinic). Pt on bipap, iv atb, wound care (pulse lavage per PT) bilat lower ext, and therapy. [facility] will see if [facility] complete is currently waiving auth. They anticipate having a bed over the weekend if ready.
--- NOTE | 2020-12-04 21:30 | NUR ---
PT IS AXOX4, PLEASANT; VSS, AFEBRILE, SR ON THE MONITOR. PT XFR FROM ICU THIS AM. WOUND CARE CONSULTED FOR BILAT LE CELLULITIS WOUNDS. RT CONSULTED FOR BIPAP AND O2 STATUS. POC IS TO CONTINUE TO ASSESS PT O2 SAT, ABX THERAPY, AMS, AND WOUND CARE. CASE MGMT CONSULTED FOR FURTHER NEEDS FOR PT NEEDS POST D/C. PT PROGRESSING TOWARDS GOALS. FALL PRECAUTIONS IN PLACE. FREQUENT ROUNDING.
[2020-12-05 03:49] VITALS: BP 110/67
--- NOTE | 2020-12-05 05:47 | NUR ---
SLEPT PART OF SHIFT. FORGETFUL TO TIME. THINKS LUNCH IS HERE. TAKES BIPAP OFF BUT WILL PUT BACK ON WITH GENTLE REMINDERS. WORKING ON GOALS AND PLAN OF CARE FOR NOCS. ASSIST TO REPOSITION NEEDED. CONTINUE TO ASSES.
[2020-12-05 08:25] VITALS: BP 110/68
[2020-12-05 12:03] VITALS: BP 126/68
--- NOTE | 2020-12-05 12:12 | NUR ---
SITE ACQUISITION SPECIALIST CALLED BY HS FOR PT AT 1128 THIS MORNING. PT IS ON BIPAP, CONTINUES WITH LOW O2 SATURATION AND C/O CHEST PAIN AT 100% ON BIPAP. PT TO MOVE TO ICU. SEE FLOWSHEET FOR DETAILS.
--- NOTE | 2020-12-05 12:28 | NUR ---
FAXED CLINICAL UPDATES TO [facility] WITH NEGATIVE COVID (11/29/20). SPOKE TO JASPER/LIAISON THAT PATIENT IS READY TO DISCHARGE TODAY. FA[facility]ED [facility] WA[facility] ADMINISTRATION IS REVIEWING. SHE WILL NOTIFY US IF THEY CAN ACCEPT WITHOUT AUTHORIZATION AND BED AVAILABILITY. [facility] P [phone]; FAX [phone]; M [phone]
--- NOTE | 2020-12-05 13:09 | NUR ---
Nutrition: Recommend consideration of formal ST eval to determine most appropriate diet. RECommend folic acid, vitamin D supplement for deficiency.
--- NOTE | 2020-12-05 15:27 | NUR ---
denise confirmed with ga from [facility] that pt will admit tomorrow. and, [facility] will arrange stretcher transportation, call [facility] at [phone] and ask for ga, with any question re: admission/transportation. cm faxed bipap setting ( ga confirmed receipt ) as ga will order pt a machine because pt is not allow to bring any of his belongings, including DMEs, to facility. pt's caregiver/neighbor was notified of this by this cm and advised to take pt's belongings home. cm notified dr. hanley that the plan is for pt to admit to [facility] tomorrow.
[2020-12-05 16:14] VITALS: BP 96/59
--- NOTE | 2020-12-05 17:53 | NUR ---
ASSESSMENT CHARTED - MEDS PER ERASMO - HUNTER DIET AND NECTAR THICK LIQUIDS. NO CO'S OF PAIN OR NAUSEA. DDRESSING TO LEGS COMPLETED ORDERED. ACCUCHECKS CHARTED - COVERED PER SSI. PT TO TRANSFER TO [facility] TOMORROW. NO CO'S AT THE PRESENT TIME.
[2020-12-05 19:20] VITALS: BP 106/69
[2020-12-06 03:59] VITALS: BP 109/70
--- NOTE | 2020-12-06 05:27 | NUR ---
SLEPT PART OF SHIFT. REPOSITIONS SELF AND SOMETIMES ASKS FOR ASSIST. WORKING ON GOALS AND PLAN OF NOC. DENIES COMPLAINTS OF PAIN. PLAN FOR DC TODAY TO [facility]. CONTINUE TO ASSES.
[2020-12-06 07:11] VITALS: BP 132/75
[2020-12-06 11:47] VITALS: BP 129/70
--- NOTE | 2020-12-06 11:58 | NUR ---
PATIENT PLANNED DC TO [facility] TODAY PLACED ON HOLD DUE TO PATIENT STILL BEING ON 15L HIGHFLOW NC. PATIENT NEEDS TO BE DOWN TO 8-10L BEFORE [facility] CAN TAKE THE PATIENT. INFORMED DR. EVANS OF THIS, ORDER RECIEVED TO DC IV FLUIDS AND HE WILL PUT IN LASIXS ORDERS.
[2020-12-06 11:59] LABS: BASOPHILS 0.4 % (0.0-2.0); EOSINOPHILS 2.2 % (0.0-3.0); HEMATOCRIT 44.1 % (42.0-52.0); HEMOGLOBIN 14.3 gm/dL (14.0-18.0); MCH 31.2 pg (26.0-34.0); MCHC 32.5 g/dL (28.0-37.0); MCV 95.9 fL (80.0-100.0); MONOCYTES 5.1 % (1.0-8.0); PLATELET COUNT 185 thou/uL (150-400); POLYS 84.3 % (36.0-66.0); RBC 4.59 mil/uL (4.50-6.00); RDW 14.4 % (10.5-14.5); WBC 11.8 thou/uL (4.0-11.0)
[2020-12-06 12:17] LABS: CALCIUM 8.3 mg/dL (8.5-10.1); CREATININE 0.9 mg/dL (0.7-1.3); MAGNESIUM 2.3 mg/dL (1.8-2.4); TOTAL BILIRUBIN 0.4 mg/dL (0.2-1.0); TOTAL PROTEIN 6.9 g/dL (6.4-8.2)
[2020-12-06 13:09] LABS: BE(vivo) 5.2 mmol/L (-2 to +3); HCO3 31.9 mmol/L (22.0-26.0); PCO2 54.7 mmHg (35.0-45.0); pH 7.384 (7.360-7.450); sO2 94.4 % (92.0-98.0)
[2020-12-06 14:27] VITALS: BP 116/42
--- NOTE | 2020-12-06 15:29 | NUR ---
PATIENT DID NOT DISCHARGE TO [facility] BECAUSE OXYGEN NEEDS TO BE AT 8-10L. FAXED CLINICAL UPDATES TO [facility]AMONT[facility]LIAISON. [facility] TEST[facility] THE DAY OF DISCHARGE. STRETCHER VAN TRANSPORTATION WITH O2 WILL BE ARRANAGED BY [facility] WHEN PATIENT IS DISCHARGED. [facility] P [phone]; FAX [phone]; M [phone]
[2020-12-06 16:08] VITALS: BP 128/62
[2020-12-06 19:33] VITALS: BP 144/84
[2020-12-07 03:04] VITALS: BP 143/73
[2020-12-07 07:15] VITALS: BP 126/83
[2020-12-07 11:00] VITALS: BP 114/81
[2020-12-07 15:10] VITALS: BP 122/83
[2020-12-07 20:11] VITALS: BP 130/94
[2020-12-08] VITALS (20 sets, daily range): BP systolic 88–130; BP diastolic 42–90
--- NOTE | 2020-12-08 02:43 | NUR ---
0110 ON BIPAP AND FELT NAUSEATED. SPIT UP MUCUS. COUGHING. PLACED ON 15L/NC AND 100% NRB TO CATCH BREATH, SATS NOW 91%. RT WILL REASSES. 0220 PLACED BACK ON BIPAP AND O2 SAT 99%. DENIES PRESENT COMPLAINTS OF NAUSEA. 0250 O2 SAT 99% ON BIPAP AND RESTING WITHOUT COMPLAINTS. WORKING ON GOALS AND PLAN OF CARE FOR NOC. CONTINUE TO ASSES CLOSELY.
[2020-12-08 02:52] LABS: HEMATOCRIT 43.8 % (42.0-52.0); HEMOGLOBIN 14.4 gm/dL (14.0-18.0); MCH 31.1 pg (26.0-34.0); MCV 94.2 fL (80.0-100.0); RBC 4.65 mil/uL (4.50-6.00); WBC 11.5 thou/uL (4.0-11.0)
[2020-12-08 02:55] LABS: CALCIUM 8.5 mg/dL (8.5-10.1); MAGNESIUM 2.2 mg/dL (1.8-2.4); POTASSIUM 3.2 mmol/L (3.5-5.1)
--- NOTE | 2020-12-08 07:51 | NUR ---
0330 PATIENT AWAKENED AND FELT NAUSEATED. SAT UP AND TOOK BIPAP OFF. THREW UP 100 CC BROWN LIQUID. PLACED ON 100% NRB AND 15L/HF WITH O2 SATS 94%. NOTIFIED DEMI DIRECTOR INVESTMENT BANKING AND ORDERS RECIEVED FOR COMPAZINE IVP. MEDICATION GIVEN AND PATIENT SLEEPING. 0430 CHECKED ON PATIENT AND HE STATES HE FEELS SO MUCH BETTER. PLACED BACK ON BIPAP AT 100%. CONTINUE TO ASSES CLOSELY.
[2020-12-08 10:31] LABS: BE(vivo) 7.4 mmol/L (-2 to +3); HCO3 33.7 mmol/L (22.0-26.0); PCO2 53.9 mmHg (35.0-45.0); PO2 77.3 mmHg (80.0-100.0); pH 7.414 (7.360-7.450); sO2 95.4 % (92.0-98.0)
--- NOTE | 2020-12-08 11:30 | NUR ---
report received from Su[facility] RN. received in ICU #245 related to increased oxygenation requirements and emesis with possible aspiration. alert to person, place, cooperative, SR, bipap with [id number]%, taking deep breaths with fair nonproductive cough effort. desats when mask briefly removed, large amount urine output per espinosa. bathed, clean linen upon icu arrival.
--- NOTE | 2020-12-08 11:48 | NUR ---
RECIEVED REPORT AT 0645, PATIENT ON 100% BIPAP. I ATTEMPTED TO TAKE OFF BIPAP TO ALLOW PATIENT TO GET A DRINK OF WATER AND DESATED INSTANTLY TO 83%. PATIENT ONLY SATING 90-92% ON BIPAP. DR. MATIAS AND NATHAN CALLED AND NOTIFIED. STAT ORDERS PLACED. DR. MATIAS ORDERED TRANSFER TO ICU. REPORT CALLED TO GABRIELLA IN ICU, NO QUESTIONS AT TIME OF REPORT. TRANSFERED TO ROOM 245.
--- NOTE | 2020-12-08 12:42 | NUR ---
Pt TRANSFERRED TO ICU. WILL PLACE ON HOLD AND AWAIT NEW ORDERS TO RESUME
--- NOTE | 2020-12-08 19:39 | NUR ---
updated Kenia Johnson- sister that pt will remain at [facility] in the ICU. he will not be transferring to another hospital for continous video/eeg monitoring since bed unavailable. Dr. Aldridge present to see pt. pt consumed evening meal, well tolerated. no seizure activity since geophysics scientist. pt progressing.
[2020-12-09] VITALS (22 sets, daily range): BP systolic 88–114; BP diastolic 52–75
[2020-12-09 04:59] LABS: BE(vivo) 7.9 mmol/L (-2 to +3); HCO3 34.9 mmol/L (22.0-26.0); PO2 122.5 mmHg (80.0-100.0); pH 7.405 (7.360-7.450); sO2 98.4 % (92.0-98.0)
[2020-12-09 05:26] LABS: HEMATOCRIT 44.1 % (42.0-52.0); HEMOGLOBIN 14.7 gm/dL (14.0-18.0); MCH 31.2 pg (26.0-34.0); MCHC 33.2 g/dL (28.0-37.0); MCV 93.7 fL (80.0-100.0); RBC 4.71 mil/uL (4.50-6.00); RDW 13.7 % (10.5-14.5); WBC 12.6 thou/uL (4.0-11.0)
[2020-12-09 05:44] LABS: CALCIUM 8.6 mg/dL (8.5-10.1); POTASSIUM 3.8 mmol/L (3.5-5.1)
--- NOTE | 2020-12-09 18:32 | NUR ---
PATIENT IS ALERT AND ORIENTED. PATIENT WAS TAKEN OFF BIPAP TO TRY A HIGH FLOW NASAL CANNULA AT 15 L TO EAT LUNCH. PATIENT DESATED TO 88%. PATIENT PUT BACK ON BIPAP AND SATS WENT UP TO 94-99%. AT 1600 RT PUT PATIENT ON FIO2 AT 90% AND PATIENT HAS BEEN SATTING AT 93-95%. PATIENT IS CALM AND COOPERATIVE ON PRECEDEX GTT. WILL CONTINUE TO MONITOR.
[2020-12-10] VITALS (23 sets, daily range): BP systolic 83–126; BP diastolic 46–75
[2020-12-10 04:49] LABS: HEMATOCRIT 42.8 % (42.0-52.0); HEMOGLOBIN 14.2 gm/dL (14.0-18.0); MCH 31.7 pg (26.0-34.0); MCHC 33.2 g/dL (28.0-37.0); MCV 95.7 fL (80.0-100.0); RBC 4.47 mil/uL (4.50-6.00); RDW 14.3 % (10.5-14.5); WBC 16.7 thou/uL (4.0-11.0)
[2020-12-10 04:56] LABS: CALCIUM 8.6 mg/dL (8.5-10.1); POTASSIUM 3.6 mmol/L (3.5-5.1)
[2020-12-10 11:25] LABS: MAGNESIUM 2.8 mg/dL (1.8-2.4)
--- NOTE | 2020-12-10 18:15 | NUR ---
Pt transferred to room 250 placed on the Monitor Krystal RN will give night nurse a report. Vss at this time.
--- NOTE | 2020-12-10 19:42 | NUR ---
Patient consuming diet at a rapid rate. Coughing and then desats. Encouraged to slow his eating down and enjoy his meal. Patient placed back on bipap and sats returned to the mid 90's.
[2020-12-11] VITALS (16 sets, daily range): BP systolic 96–143; BP diastolic 45–87
[2020-12-11 05:57] LABS: ALBUMIN 2.2 g/dL (3.4-5.0); CALCIUM 8.4 mg/dL (8.5-10.1); CREATININE 0.9 mg/dL (0.7-1.3); MAGNESIUM 2.7 mg/dL (1.8-2.4); PHOSPHORUS 3.5 mg/dL (2.5-4.9); POTASSIUM 3.8 mmol/L (3.5-5.1); TOTAL BILIRUBIN 0.2 mg/dL (0.2-1.0); TOTAL PROTEIN 6.7 g/dL (6.4-8.2)
--- NOTE | 2020-12-11 07:43 | NUR ---
Pt remains stable in this shift. Continue to be on /off BIPAP. Still required high concentratation of O2. He is able to expectorate sputum and use yankuer to clear his own. Denies of any shortness of breath. POulmonary toilet in progress. VS remains stable. He is slowly progressing toward POCs.
--- NOTE | 2020-12-11 13:53 | NUR ---
ASSUMMED CARE OF THIS PATIENT FROM THE NIGHT NURSE, IMER RN AT 0700. PATIENT NOTED TO BE IMPULSIVE WITH HIS EATING AND STATES THAT HE SOMETIMES RUNS OUT OF FOOD STAMPS AND DOESN'T HAVE FOOD TO EAT. PATIENT ALSO STATED THAT HIS ELECTRIC WHEELCHAIR IS BROKEN. PATIENT GIVEN SMALL PORTIONS OF MEAL TO EAT AND ENCOURAGED TO TAKE SMALL BITES AND TO CHEW HIS FOOD WELL. WILL CONTINUE TO MONITOR.
--- NOTE | 2020-12-11 15:48 | NUR ---
PATIENT TRANSFERRED TO CCU ROOM 219 VIA BED WITH O2 AND ON SEISMIC PROSPECTING SUPERVISOR. REPORT GIVEN TO ANTON GUEVARA. PATIENT ALERT AND COOPERATIVE.
--- NOTE | 2020-12-11 18:39 | NUR ---
PT TX TO CCU APPROX 1700 FROM ICU. PT AFEBRILE, ADEQUATE UOP, NO BM, APPROPRIATE APPETITE. PT ON BIPAP PRN AND HIGH FLOW NC @ 15L WHILE EATING. RU PICC FUNCTIONING WELL. DC TPN TONIGHT PER DR MATIAS. PT HAS BEEN THOUROUGHLY UPDATED AND EDUCATED ON PT CONDITION AND POC. PT SLOWLY PROGRESSING TOWARDS POC.
--- NOTE | 2020-12-11 22:43 | NUR ---
PT WATCHING TV. O2 PER NC 15L. ID VISITED. LUNGS WITH WHEEZES. KENNEDY TO DD. BLE WRAPPED IN LAURA. PT REPORTS POSITIVE SENSATION, BLE WARM TO THE TOUCH. PT STATED HE CANNOT REMEMBER HIS HOME PHONE NUMBER AND IT WAS PROVIDED. PT COMPLIANT WITH NECTAR LIQUIDS. OBESE, PARA BS DECREASED. BED ALARM ON.
[2020-12-12 05:07] VITALS: BP 123/87
[2020-12-12 06:13] LABS: ALBUMIN 2.2 g/dL (3.4-5.0); CALCIUM 8.2 mg/dL (8.5-10.1); MAGNESIUM 2.6 mg/dL (1.8-2.4); PHOSPHORUS 3.9 mg/dL (2.5-4.9); POTASSIUM 4.5 mmol/L (3.5-5.1); TOTAL BILIRUBIN 0.3 mg/dL (0.2-1.0); TOTAL PROTEIN 6.3 g/dL (6.4-8.2)
[2020-12-12 08:46] VITALS: BP 116/70
[2020-12-12 12:45] VITALS: BP 110/70
--- NOTE | 2020-12-12 12:54 | NUR ---
Pt now out of ICU and on 15liters high flow. He is taking some po intake now and TPN being dc'd. He continues on ivatbx2 and bilat wound care to his feet. DC sales planner to fax clinical update to [facility] in anticipation pt may be ready for SNF early next week if his respiratory status continues to improve. Will follow.
--- NOTE | 2020-12-12 13:59 | NUR ---
Assumed pt care this am some wheezing noted. Bipap removed, tolerated room air O2 sat is at 93 % . Diet and medications are tolerated well. FC in place draining yellow urine. FAmily visited at the bed side
--- NOTE | 2020-12-12 14:28 | NUR ---
Nutrition: Recommend formal ST eval to determine safest diet consistency
--- NOTE | 2020-12-12 14:56 | NUR ---
FAXED CLINICAL UPDATES TO [facility]. SENT A TEXT TO CJ/LIAISON TO PLEASE CONFIRM WHEN SHE RECEIVES. DCP TO FOLLOW UP.
[2020-12-12 16:00] VITALS: BP 119/72
[2020-12-12 20:15] VITALS: BP 122/69
--- NOTE | 2020-12-13 02:18 | NUR ---
PT IS A/O X4 AND IS ON BED REST. VSS AFEBRILE. MEDICATIONS GIVEN PER MAR. KENNEDY IN PLACE AND DRAINING YELLOW URINE. NO BM THIS SHIFT. DENIES C/O PAIN OR DISCOMFORT. IS PLEASANT AND COOPERATIVE WITH CARES. DOES HOWEVER APPEAR ANXIOUS AT TIMES OR POSSIBLY LONELY AND DOES CALL OUT CONSISTENTLY. NURSE SAT WITH PATIENT FOR A WHILE AND TALKED WITH HIM IN HOPES TO ALLEVIATE SOME FEELINGS OF BEING LONELY. FALL PRECAUTIONS IN PLACE, CALL LIGHT IS WITHIN REACH. WILL CONTINUE TO MONITOR. REMAINS ON NECTAR THICK LIQUIDS AND A REGULAR DIET. 4 UNITS OF INSULIN GIVEN PER SLIDING SCALE. HS SNACK PROVIDED. REFUSED WOUND CARE TO BE COMPLETED DESPITE NURSE EXPLAINING THE IMPORTANCE. WILL ASK AGAIN BEFORE END OF SHIFT. DRSGS HOWEVER ARE C/D/I WITH NO DRAINAGE NOTED. BIPAP AND CONTINOUS PULSE OX IN PLACE. WILL CONTINUE TO MONITOR. PT CALLS OUT APPROPRIATELY FOR ASSISTANCE.
[2020-12-13 04:10] VITALS: BP 135/90
[2020-12-13 08:00] VITALS: BP 129/88
[2020-12-13 12:00] VITALS: BP 122/79
--- NOTE | 2020-12-13 12:46 | NUR ---
ORDERS RECEIVED FROM DR EVANS TO RESTART P.T.. Pt'S NURSE, LAKSHMI, JUST COMPLETED Pt'S WOUND CARE. NSG NOT AWARE OF ANY PULSATILE RESTART ORDERS, WHICH WOULD COME FROM WOUND CARE DOC. STATED BEFORE, Pt IS AT HIS BASELINE SO NO ACUTE P.T. NEEDED AT THIS TIME. Pt AGREES AND REFUSED P.T./AGREED WITH D/C OF IT.
[2020-12-13 16:00] VITALS: BP 130/87
[2020-12-13 19:52] VITALS: BP 140/80
--- NOTE | 2020-12-14 00:51 | NUR ---
PT WAS ASLEEP AT THE BEGINNING OF THE SHIFT. TOLERATING BIPAP. VSS, AFEBRILE. DENIED PAIN. SR-SB PER MONITOR. LE DRESSING INTACT. KENNEDY PATENT WITH ADEQUATE AMTS OF URINE. LASIX HELD FOR NOW. RIGHT UPPER ARM PICC PATENT WITH DRESSING DRY. POSSIBLE DC TO [facility] SOON. SLOW PROGRESS TOWARDS DC GOALS. WILL CONTINUE TO MONITOR.
[2020-12-14 03:39] VITALS: BP 137/85
[2020-12-14 08:12] VITALS: BP 122/72
[2020-12-14 11:56] VITALS: BP 121/71
[2020-12-14 15:25] LABS: HEMATOCRIT 45.9 % (42.0-52.0); HEMOGLOBIN 14.7 gm/dL (14.0-18.0); MCH 30.2 pg (26.0-34.0); MCHC 32.1 g/dL (28.0-37.0); MCV 94.1 fL (80.0-100.0); PLATELET COUNT 308 thou/uL (150-400); RBC 4.88 mil/uL (4.50-6.00); RDW 14.6 % (10.5-14.5); WBC 20.1 thou/uL (4.0-11.0)
[2020-12-14 15:46] LABS: ALBUMIN 2.3 g/dL (3.4-5.0); CALCIUM 8.6 mg/dL (8.5-10.1); CREATININE 0.9 mg/dL (0.7-1.3); MAGNESIUM 2.3 mg/dL (1.8-2.4); POTASSIUM 4.6 mmol/L (3.5-5.1); TOTAL BILIRUBIN 0.3 mg/dL (0.2-1.0); TOTAL PROTEIN 6.3 g/dL (6.4-8.2)
[2020-12-14 16:04] VITALS: BP 129/64
[2020-12-14 16:07] LABS: ABSOLUTE NEUTROPHILS 19.3 thou/uL (1.4-8.2)
--- NOTE | 2020-12-14 16:43 | NUR ---
PT ALERT AND ORIENTED TIMES FOUR. VSS. 6L PER NC/BIPAP AT NIGHT. KENNEDY TO DD. PT DENIES PAIN. PT TOLERATES MEDS AND MEALS. PT SLOWLY PROGRESSING BELARADS POC GOALS.
[2020-12-14 20:20] VITALS: BP 128/77
[2020-12-15 04:41] VITALS: BP 137/82
[2020-12-15 06:49] LABS: HEMATOCRIT 47.7 % (42.0-52.0); HEMOGLOBIN 15.4 gm/dL (14.0-18.0); MCH 30.5 pg (26.0-34.0); MCHC 32.3 g/dL (28.0-37.0); MCV 94.5 fL (80.0-100.0); PLATELET COUNT 315 thou/uL (150-400); RBC 5.04 mil/uL (4.50-6.00); RDW 14.6 % (10.5-14.5); WBC 20.8 thou/uL (4.0-11.0)
[2020-12-15 07:20] LABS: ALBUMIN 2.5 g/dL (3.4-5.0); CALCIUM 8.5 mg/dL (8.5-10.1); CREATININE 0.9 mg/dL (0.7-1.3); MAGNESIUM 2.3 mg/dL (1.8-2.4); POTASSIUM 4.5 mmol/L (3.5-5.1); TOTAL BILIRUBIN 0.4 mg/dL (0.2-1.0); TOTAL PROTEIN 6.7 g/dL (6.4-8.2)
--- NOTE | 2020-12-15 07:45 | NUR ---
pt resting quietly in bed, no c/o pain, dressing remains cdi, off 7l/nc to his bipap, repositions self in bed, labs drawn thru r arm picc, pt stated he will be going home today and became very argumentative and angry if stated any other plan, report given to next shift will con't to monitor per ppoc.
[2020-12-15 08:00] VITALS: BP 116/76
[2020-12-15 09:26] LABS: ABSOLUTE NEUTROPHILS 19.3 thou/uL (1.4-8.2); PLATELET ESTIMATE NORMAL
[2020-12-15 12:09] VITALS: BP 131/80
--- NOTE | 2020-12-15 12:16 | NUR ---
ON-GOING ASSESSMENT: CM REVIEWED CHART. CM FAXED UPDATED CLINICAL TO [facility] AND ALSO NOTIFIED THEM OF BIPAP SETTINGS. PT WILL REMAIN IN HOSPITAL ANOTHER DAY. PER LIASON AT [facility] PT HAS AUTH TO GO TO SNF. CM WILL CONTINUE TO FOLLOW.
[2020-12-15 16:00] VITALS: BP 116/80
--- NOTE | 2020-12-15 20:28 | NUR ---
VAT ROUNDING AFTER 0 SHIFT CHANGE, DRESSING OFF OF PICC AND LINE NOW OUT 9CM. SITE SCRUBBED WELL, DRG/CAPS CHG'D. SPOKE TO PRIMARY NIGHT RN, LINE MAY STILL BE USED.
[2020-12-15 21:34] VITALS: BP 133/74
--- NOTE | 2020-12-16 04:03 | NUR ---
Assumed pt care at 1900. Pt is alert. No sign of distress noted in pt. Pt is stable. Assessment completed and documented. Denies any pain. Scheduled meds administered to pt. Tolerated PO intake. No acute event during the night. Continue to monitor. No further needs at this time.
[2020-12-16 06:06] VITALS: BP 120/86
[2020-12-16 08:13] VITALS: BP 114/76
[2020-12-16 09:51] LABS: CALCIUM 8.4 mg/dL (8.5-10.1); CREATININE 0.9 mg/dL (0.7-1.3); MAGNESIUM 1.9 mg/dL (1.8-2.4); POTASSIUM 3.9 mmol/L (3.5-5.1)
[2020-12-16 11:39] VITALS: BP 120/82
[2020-12-16] MEDS ORDERED: FOLIC ACID1 MG PO (13:03)
[2020-12-16] MEDS ORDERED: LASIX 40 MG TAB40 M1 PO (13:03)
[2020-12-16] MEDS ORDERED: COLACE 100 MG100 MG PO (13:03)
[2020-12-16] MEDS ORDERED: VITAMIN D325 MC2 PO (13:03)
[2020-12-16] MEDS ORDERED: AMOX TR-K CLV1 EAC4 PO (13:03)
[2020-12-16] MEDS ORDERED: Nicotine Transdermal TRANSDERM (13:03)
[2020-12-16] MEDS ORDERED: AMMONIUM LACTA226 GM TOP (13:03)
[2020-12-16] MEDS ORDERED: ENOXAPARIN30 MG/0.3 SUBQ (13:03)
[2020-12-16] MEDS ORDERED: PEPCID20 MG PO (13:03)
[2020-12-16] MEDS ORDERED: HUMALOG100 UNIT/1 SUBQ (13:03)
[2020-12-16] MEDS ORDERED: PREDNISONE 20 M20 M1 PO (13:03)
[2020-12-16] MEDS ORDERED: SEROQUEL 100 M100 M1 PO (13:03)
[2020-12-16] MEDS ORDERED: LEXAPRO 10 MG T10 M1 PO (13:03)
[2020-12-16] MEDS ORDERED: IPRAT-ALBUT 0.5-3 ML INH (13:03)
--- NOTE | 2020-12-16 14:04 | NUR ---
FAXED SNF DISCHARGE ORDERS AND SUMMARY TO [facility]. WILL CONFIRM THEY RECEIVED. [facility] P [phone]; FAX [phone]; M [phone] JASPER
--- NOTE | 2020-12-16 16:53 | NUR ---
Patient to discharge to [facility]. Faxed orders. Chart copied. Anetaer van for 1600. Patient is in agreement with plan. Spoke with friend Saturnino and updated.
== END 2020-12-16 17:10 | DRG 871 ==
LOC: ER 16:18 → ICU 18:29 → EROBS 18:29 → 2N 18:29 → 4W 18:29 → ICU 12-01 17:24 → 2N 12-04 08:37 → ICU 12-08 11:30 → 2N 12-11 15:51
PROVIDERS: Emergency Medicine; Hospitalist; Internal Medicine; Internal Medicine Pulmonary Disease; Nurse Practitioner; Nurse Practitioner Family; ADMIT Hospitalist; ATTEND Hospitalist
DX: A41.9 Sepsis, unspecified organism (principal); G92 Toxic encephalopathy; J96.21 Acute and chronic respiratory failure with hypoxia; J96.22 Acute and chronic respiratory failure with hypercapnia; J69.0 Pneumonitis due to inhalation of food and vomit; E44.0 Moderate protein-calorie malnutrition; G82.20 Paraplegia, unspecified; L03.115 Cellulitis of right lower limb; L03.116 Cellulitis of left lower limb; I69.359 Hemiplegia and hemiparesis following cerebral infarction affecting unspecified side; Z68.41 Body mass index [BMI] 40.0-44.9, adult; E23.2 Diabetes insipidus; E66.01 Morbid (severe) obesity due to excess calories; R65.20 Severe sepsis without septic shock; R53.81 Other malaise; I11.0 Hypertensive heart disease with heart failure; E11.51 Type 2 diabetes mellitus with diabetic peripheral angiopathy without gangrene; I27.20 Pulmonary hypertension, unspecified; F41.9 Anxiety disorder, unspecified; F32.9 Major depressive disorder, single episode, unspecified; I87.8 Other specified disorders of veins; J44.9 Chronic obstructive pulmonary disease, unspecified; D49.6 Neoplasm of unspecified behavior of brain; L89.322 Pressure ulcer of left buttock, stage 2; L89.312 Pressure ulcer of right buttock, stage 2; R41.0 Disorientation, unspecified; Z20.822 Contact with and (suspected) exposure to COVID-19; I50.9 Heart failure, unspecified; L85.9 Epidermal thickening, unspecified; F17.210 Nicotine dependence, cigarettes, uncomplicated; Z79.899 Other long term (current) drug therapy; Z88.1 Allergy status to other antibiotic agents; Z71.6 Tobacco abuse counseling
CPT/HCPCS: 10040; 10078; 10081; 10203; 27000; 50455

== ENCOUNTER 2021-02-28 03:03 | Emergency (ER) | payer MEDICARE, OTHER ==
[~2021-02-28] VITALS: Ht 188 cm; Wt 141.1 kg
--- NOTE | ~2021-02-28 | EMS ---
[address] [address] EMS Patient Care Report Name: RICARDO ALFONSO Room #: DEP CONOR Berman#: [id number] Admission: 02/28/21 Attend Phys: Discharge: 02/28/21 Date of : 68 Report #: [id number] THIS REPORT FOR: //name// Report Transmitted: 03/06/2021 10:16 EMS Care Summary [place], [place]/[facility] Incident [id number] @ 02/28/2021 02:14 Incident Location [address] [place] [address] Patient RICARDO ALFONSO Male, 50 Years 1970 Patient Address [address] [place] [address] Patient History Chronic Obstructive Pulmonary Disease (COPD),Hypertension (HTN),Morbid Obesity,Brain Tumor,Cellulitis, Patient Allergies No known allergies, Patient Medications Desmopressin (DDAVP), Alprazolam, Lexapro, Metoprolol, Atorvastatin, Aspirin, Prednisone, Gabapentin, Quetiapine, Chief Complaint FOOT PAIN Disposition Transported No Lights/[place] Dispatch Reason Sick Person Transported To [facility] Narrative M30 RESPONDED TO A SICK PERSON. M30 ARRIVED ON SCENE TO FIND PT IN BED WITH THROBBING BILATERAL FOOT PAIN AND RIGHT LEG PAIN RADIATING FROM HIP TO FOOT. PT [address] [address] EMS Patient Care Report Name: RICARDO ALFONSO Room #: DEP [facility]#: [id number] Admission: 02/28/21 Attend Phys: Discharge: 02/28/21 Date of : 68 Report #: [id number] WAS ASSESSED AND DEEMED BLS. PUMPER CREW WAS CALLED FOR LIFTING ASSISTANCE DUE TO PT BEING PARAPLEGIC. PT STATED HE HAS BEEN IN HIS BED FOR A MONTH DUE TO NO ASSISTANCE IN MOVING HIM FROM THE BED TO HIS WHEELCHAIR. PT WAS GIVEN A SURGICAL MASK AND HELPED ONTO A GRABIEL SUMAC TANNER. WHEN PUMPER CREW ARRIVED PT WAS SLID FROM BED TO STRETCHER AND SECURED VIA SEATBELTS. PT WAS TRANSFERED INTO AMBULANCE AND REASSESSED DURING TRANSPORT WITH NO CHANGE IN PT CONDITION OR VITAL SIGNS. PT WAS TRANSFERED INTO HOSPITAL SECURED TO STRETCHER. PT WAS LEFT IN A HOSPITAL BED UNDER THE CARE OF NURSING STAFF WITH HANDRAILS UP. Initial Vitals @02:35P: 108,R: 18,BP: 141/56,Pain: 4/10,GCS: 15,CO: 21,SpO2: 96,Revised Trauma: 12, @02:55P: 107,R: 17,BP: 116/76,Pain: 4/10,GCS: 15,CO: 22,SpO2: 96,Revised Trauma: 12, Assessments @02:35MENTAL:Person Oriented,Time Oriented,Place Oriented,Event Oriented,SKIN:HEENT:Head/Face: No Abnormalities,Eyes: No Abnormalities,Neck/Airway: No Abnormalities,LUNG SOUNDS:General: No Abnormalities,Left Upper: No Abnormalities,Right Upper: No Abnormalities,Left Lower: No Abnormalities,Right Lower: No Abnormalities,ABDOMEN:General: No Abnormalities,Left Upper: No Abnormalities,Right Upper: No Abnormalities,Left Lower: No Abnormalities,Right Lower: No Abnormalities,PELVIS//GI:No Abnormalities,EXTREMITIES:Right Leg: IMTIAZ,Right Leg: IMTIAZ,Left Leg: IMTIAZ,Right Leg: IMTIAZ,Left Arm: No Abnormalities,Right Arm: No Abnormalities,PULSE:NEURO:No Abnormalities, Impression Acute Pain, not elsewhere classified Procedures @02:34 ALS Assessment Response: UnchangedSucceeded @02:35 BLS Assessment Response: Unchanged Timeline 02:13,Call Received 02:13,Dispatch Notified 02:14,Dispatched 02:14,En Route 02:19,On Scene 02:20,At Patient 02:34,ALS Assessment,Response: UnchangedSucceeded, 02:35,BLS Assessment,Response: Unchanged 02:35,BP: 141/56 M,PULSE: 108,RR: 18 R,SPO2: 96 Ox,ETCO2: ,BG: ,PAIN: 4,GCS: 15, [address] [address] EMS Patient Care Report Name: NATYRICARDO Room #: DEP Antonella#: [id number] Admission: 02/28/21 Attend Phys: Discharge: 02/28/21 Date of : 68 Report #: [id number] 02:48,Depart Scene 02:55,BP: 116/76 M,PULSE: 107,RR: 17 R,SPO2: 96 Ox,ETCO2: ,BG: ,PAIN: 4,GCS: 15, 03:10,At Destination 03:12,Call Closed Disclaimer v1.1 Copyright 2020 [employer] This EMS Care Summary contains data elements from the applicable legal record (which may be displayed differently). It is designed to provide pertinent information for the following purposes: continuity of care, clinical quality, and state data reporting. The complete legal record is available to ED staff and administrators of the receiving hospital in [employer]'s Patient Tracker. All data is provided "as is."
[~2021-02-28 03:03] MED LIST changes: +AMMONIUM LACTA226 GM TOP; +AMOX TR-K CLV1 EAC4 PO; +COLACE 100 MG100 MG PO; +ENOXAPARIN30 MG/0.3 SUBQ; +FOLIC ACID1 MG PO; +HUMALOG100 UNIT/1 SUBQ; +IPRAT-ALBUT 0.5-3 ML INH; +LASIX 40 MG TAB40 M1 PO; +LEXAPRO 10 MG T10 M1 PO; +Nicotine Transdermal TRANSDERM; +PEPCID20 MG PO; +PREDNISONE 20 M20 M1 PO; +SEROQUEL 100 M100 M1 PO; +VITAMIN D325 MC2 PO
[2021-02-28 03:57] LABS: ABSOLUTE NEUTROPHILS 9.8 thou/uL (1.4-8.2); BASOPHILS 0.7 % (0.0-2.0); EOSINOPHILS 2.9 % (0.0-3.0); HEMATOCRIT 45.8 % (42.0-52.0); HEMOGLOBIN 15.6 gm/dL (14.0-18.0); LYMPHOCYTES 12.6 % (24.0-44.0); MCH 32.6 pg (26.0-34.0); MCHC 34.1 g/dL (28.0-37.0); MCV 95.5 fL (80.0-100.0); MONOCYTES 7.8 % (1.0-8.0); PLATELET COUNT 247 thou/uL (150-400); RBC 4.79 mil/uL (4.50-6.00); RDW 15.3 % (10.5-14.5); WBC 12.8 thou/uL (4.0-11.0)
[2021-02-28 04:03] LABS: CALCIUM 8.4 mg/dL (8.5-10.1); CREATININE 0.8 mg/dL (0.7-1.3); POTASSIUM 3.9 mmol/L (3.5-5.1)
[2021-02-28 04:09] LABS: TOTAL BILIRUBIN 0.2 mg/dL (0.2-1.0); TOTAL PROTEIN 6.7 g/dL (6.4-8.2)
[2021-02-28] MEDS ORDERED: NORCO7.5 PO (04:37)
[2021-02-28 05:26] VITALS: BP 132/78
== END 2021-02-28 07:27 | disposition home or self-care (01) ==
LOC: ER 03:03
PROVIDERS: Emergency Medicine
DX: M79.605 Pain in left leg (principal); M79.604 Pain in right leg; E11.9 Type 2 diabetes mellitus without complications; F32.9 Major depressive disorder, single episode, unspecified; F41.9 Anxiety disorder, unspecified; I10 Essential (primary) hypertension; F17.210 Nicotine dependence, cigarettes, uncomplicated; Z79.899 Other long term (current) drug therapy; Z88.1 Allergy status to other antibiotic agents

== ENCOUNTER 2021-04-02 19:36 | Inpatient (IN) | payer MEDICARE, OTHER ==
[~2021-04-02] VITALS: Ht 188 cm; Wt 138.4 kg
--- NOTE | ~2021-04-02 | EMS ---
[address] [address] EMS Patient Care Report Name: RICARDO ALFONSO Room #: 450-P [facility] IN M.R.#: [id number] Admission: 04/02/21 Attend Phys: Dale Drummond MD Discharge: 04/06/21 Date of : 68 Report #: [id number] THIS REPORT FOR: //name// Report Transmitted: 04/10/2021 14:03 EMS Care Summary [place], [place]/[facility] Incident [id number] @ 04/02/2021 18:27 Incident Location [address] [place] [address] Patient RICARDO ALFONSO Male, 50 Years 1970 Patient Address [address] [place] [address] Patient History Chronic Obstructive Pulmonary Disease (COPD),Hypertension (HTN),Morbid Obesity,Brain Tumor,Cellulitis, Patient Allergies No known allergies, Patient Medications Desmopressin (DDAVP), Lexapro, Prednisone, Aspirin, Quetiapine, Atorvastatin, Metoprolol, Gabapentin, Alprazolam, Chief Complaint EXTREMETY PAIN Disposition Transported No Lights/[place] Dispatch Reason Sick Person Transported To [facility] Narrative DISPATCHED TO [address] [place] [address] FOR A SICK PERSON. UPON ARRIVAL EMS KNOCKED ON DOOR AND WAS INSTRUCTED TO ENTER. PT WAS LAYING IN BED. PT COMPLAINS OF PINS AND NEEDLE [address] [address] EMS Patient Care Report Name: RICARDO ALFONSO Room #: 450-[facility] IN M.R.#: [id number] Admission: 04/02/21 Attend Phys: Dale Drummond MD Discharge: 04/06/21 Date of : 68 Report #: [id number] PAIN IN HIS FEET AND ANKLES. EMS CALLED FOR LIFT ASSISTANCE. EMS PLACED GRABIEL DRYWALL HANGER HELPER UNDER PT BY ROLLING HIM. PT WAS MOVED TO STRETCHER VIA 4 PERSON SHEET PULL. SEAT BELTS WERE FASTENED AND RAILS WERE RAISED AND LOCKED. PT LOADED INTO AMBULANCE ON STRETCHER. PT TRANSPORTED TO [facility] WITHOUT ANY ISSUES OR CHANGE. PT TAKEN INSIDE ON STRETCHER. PT CARE TRANSFERRED TO NURSE. PT LIVING CONDITIONS ARE NOT IDEAL. PT IS A PARAPALEGIC LIVING AT HOME BY HIMSELF. PT HAS NO ASSISTANCE FROM HOME HEALTH OR FAMILY. PT'S NEIGHBOR BRINGS PT FOOD DAILY. PT WASTES AND URINATES IN TRASH CAN NEXT TO HIS BED. EMS REQUESTED THAT A [facility] COMMERCIAL LINES ACCOUNT EXECUTIVE HELP HIM WITH HIS LIVING CONDITIONS. Initial Vitals @19:25P: 98,R: 16,BP: 143/80,Pain: 8/10,GCS: 15,SpO2: 95,Revised Trauma: 12, @19:16P: 98,R: 16,BP: 131/82,Pain: 8/10,GCS: 15,SpO2: 96,Revised Trauma: 12, Assessments @19:14MENTAL:No Abnormalities,SKIN:No Abnormalities,HEENT:Head/Face: No Abnormalities,Eyes: No Abnormalities,Neck/Airway: No Abnormalities,LUNG SOUNDS:ABDOMEN:PELVIS//GI:EXTREMITIES:Capillary Refill: Right Upper: < 2 Sec,Right Leg: Paralysis,Right Leg: Abnormal Sensation,Left Leg: Abnormal Sensation,Left Arm: No Abnormalities,Right Arm: No Abnormalities,PULSE:Radial: 2+ Normal,NEURO:No Abnormalities,@19:23MENTAL:No Abnormalities,SKIN:Other,HEENT:Head/Face: No Abnormalities,Eyes: No Abnormalities,Neck/Airway: No Abnormalities,LUNG SOUNDS:ABDOMEN:PELVIS//GI:EXTREMITIES:Right Leg: Paralysis,Left Leg: Paralysis,Capillary Refill: Right Upper: < 2 Sec,Left Arm: No Abnormalities,Right Arm: No Abnormalities,PULSE:Radial: 2+ Normal,NEURO:No Abnormalities, Impression Extremity Pain Procedures @19:13 Stretcher Response: Unchanged @19:14 BLS Assessment Response: Unchanged Timeline 18:25,Call Received 18:25,Dispatch Notified 18:27,Dispatched 18:27,En Route 18:52,On Scene 18:56,At Patient 19:13,Stretcher,Response: Unchanged 19:14,BLS Assessment,Response: Unchanged [address] [address] EMS Patient Care Report Name: NATYRICARDO Room #: 450-P [facility] IN ..#: [id number] Admission: 04/02/21 Attend Phys: Dale Drummond MD Discharge: 04/06/21 Date of : 68 Report #: [id number] 19:16,BP: 131/82 M,PULSE: 98,RR: 16 R,SPO2: 96 Ox,ETCO2: ,BG: ,PAIN: 8,GCS: 15, 19:18,Depart Scene 19:25,BP: 143/80 M,PULSE: 98,RR: 16 R,SPO2: 95 Ox,ETCO2: ,BG: ,PAIN: 8,GCS: 15, 19:31,At Destination 19:57,Call Closed Disclaimer v1.1 Copyright 2020 [employer] This EMS Care Summary contains data elements from the applicable legal record (which may be displayed differently). It is designed to provide pertinent information for the following purposes: continuity of care, clinical quality, and state data reporting. The complete legal record is available to ED staff and administrators of the receiving hospital in [facility]'s Patient Tracker. All data is provided "as is."
[~2021-04-02 19:36] MED LIST changes: +NORCO7.5 PO
[2021-04-02 19:37] VITALS: BP 93/73
[2021-04-02 20:20] LABS: ABSOLUTE NEUTROPHILS 10.2 thou/uL (1.4-8.2); BASOPHILS 1.5 % (0.0-2.0); EOSINOPHILS 2.8 % (0.0-3.0); HEMATOCRIT 46.4 % (42.0-52.0); HEMOGLOBIN 15.9 gm/dL (14.0-18.0); LYMPHOCYTES 15.1 % (24.0-44.0); MCH 32.4 pg (26.0-34.0); MCHC 34.2 g/dL (28.0-37.0); MCV 94.7 fL (80.0-100.0); MONOCYTES 9.2 % (1.0-8.0); PLATELET COUNT 252 thou/uL (150-400); POLYS 71.4 % (36.0-66.0); RDW 14.5 % (10.5-14.5); WBC 14.3 thou/uL (4.0-11.0)
[2021-04-02 20:27] LABS: CALCIUM 8.7 mg/dL (8.5-10.1); POTASSIUM 3.8 mmol/L (3.5-5.1)
[2021-04-02 20:33] LABS: ALBUMIN 2.9 g/dL (3.4-5.0); TOTAL BILIRUBIN 0.2 mg/dL (0.2-1.0); TOTAL PROTEIN 6.9 g/dL (6.4-8.2)
[2021-04-02 22:48] LABS: URINE BILIRUBIN NEGATIVE (Negative); URINE BLOOD 2+ (Negative); URINE CLARITY CLEAR; URINE COLOR YELLOW; URINE GLUCOSE-RANDOM* NEGATIVE (Negative); URINE KETONES NEGATIVE (Negative); URINE NITRITE-REFLEX NEGATIVE (Negative); URINE PROTEIN (DIPSTICK) NEGATIVE (Negative); URINE SPECIFIC GRAVITY >= 1.030 (1.005-1.035)
[2021-04-02 22:55] LABS: URINE LEUKOCYTES-REFLEX 1+ (Negative)
[2021-04-02 23:18] LABS: BACTERIA-REFLEX 1-9 Few /HPF (None Seen); SQUAMOUS 0-3 Few /LPF (0-3)
[2021-04-02 23:19] LABS: CASTS None Seen /LPF (None Seen); CRYSTALS None Seen /LPF (None Seen); MUCUS 4-6 Moderate strn/LPF (None Seen); URINE WBC-REFLEX 6-15 Few /HPF (0-5)
[2021-04-03 01:40] LABS: HEMATOCRIT 45.7 % (42.0-52.0); HEMOGLOBIN 15.1 gm/dL (14.0-18.0); MCH 31.8 pg (26.0-34.0); MCHC 33.2 g/dL (28.0-37.0); RBC 4.76 mil/uL (4.50-6.00); RDW 14.7 % (10.5-14.5); WBC 13.7 thou/uL (4.0-11.0)
[2021-04-03 02:52] LABS: CALCIUM 8.5 mg/dL (8.5-10.1); CREATININE 0.9 mg/dL (0.7-1.3); POTASSIUM 3.5 mmol/L (3.5-5.1)
[2021-04-03 19:49] VITALS: BP 137/82
--- NOTE | 2021-04-04 05:01 | NUR ---
ASSUMED CARE AT 2003, PT ALERT AND ORIENTED X4, COMES FROM HOME LIVES INDEPENDENTLY, USES MOTORIZED WC FOR AMBULATION, ABLE TO SELF TURN, DRINKS PLAENTY OF WATER, GOOD OUTPUT, ADMITTED FOR UTI AND DEBELITY, IV ON THE LEFT HAND PATENT, USES URINAL, INCONTINENT OF BOWEL, COMPLAINT TO TX, CALL LIGHT AND BELONGINGS WITHIN REACH WILL CONTINUE TO MOINOTOR.
[2021-04-04 06:03] LABS: HEMATOCRIT 47.2 % (42.0-52.0); HEMOGLOBIN 15.4 gm/dL (14.0-18.0); MCH 31.4 pg (26.0-34.0); MCHC 32.7 g/dL (28.0-37.0); MCV 96.1 fL (80.0-100.0); RBC 4.91 mil/uL (4.50-6.00); RDW 14.4 % (10.5-14.5)
[2021-04-04 06:16] LABS: CREATININE 0.9 mg/dL (0.7-1.3); MAGNESIUM 2.1 mg/dL (1.8-2.4); POTASSIUM 3.6 mmol/L (3.5-5.1)
[2021-04-04 07:23] VITALS: BP 137/82
[2021-04-04 16:17] VITALS: BP 126/83
[2021-04-04 20:00] VITALS: BP 158/103
--- NOTE | 2021-04-05 05:24 | NUR ---
ASSUMED CARE AT 1900, PT LAYING COMFORTABLY IN BED, ICED WATER ON THE BEDSIDE TABLE CALL LIGHT WITHIN REACH, REPORTS NO PAIN OR DISCOMFORT, COMPLIANT TO TX, NO ADVERSE REACTION NOTED. WILL CONTINUE TO MONITOR.
[2021-04-05 07:00] VITALS: BP 152/92
--- NOTE | 2021-04-05 16:16 | NUR ---
Assumed pt care at 7am. Pt in bed most of the times today.A ssessment completed.vss. Pt drinks more than 5 pitcher of ice today and urinated frequently. Dr Drummond here,order noted.Pt has been noncompliant with meds and unable to care for self.Lamonium cream applied to bilat legs and feet as ordered.Pt requested for nicotine patch this evening, Dr Drummond called. Will be waiting for return call. No further c/o at present. Will continue to monitor.
--- NOTE | 2021-04-05 16:25 | HC ---
[facility] [place] [address] CONSULTATION Name: RICARDO ALFONSO Room #: 450-P ADM IN M.R.#: [id number] Admission: 04/02/21 Attend Phys: Dale Drummond MD Discharge: Date of : 68 Report #: [id number] THIS REPORT FOR: cc: FAM - No family physician/PCP FAM - No family physician/PCP Rasta Ham MD ~ DATE OF SERVICE: 04/04/2021 REASON FOR CONSULTATION: Venous stasis, lymphedema and cellulitis of bilateral legs with cellulitis and hyperkeratosis. HISTORY OF PRESENT ILLNESS: The patient a 50-year-old gentleman status post brain tumor resection, paraplegia and hemorrhagic cerebrovascular accident, known to wound care service from prior visits for cellulitis of the lower extremities. He is currently admitted with urinary tract infection and painful cellulitis of bilateral lower extremities, currently on intravenous cephalosporins. The patient complains of some increased pain of his lower legs. PAST MEDICAL HISTORY: 1. Paraplegia. 2. Status post brain tumor resection. 3. Hemorrhagic cerebrovascular accident. 4. Diabetes mellitus type 2 with peripheral neuropathy. 5. Immobility. 6. History cellulitis of the lower extremities. 7. Chronic foot and leg pain from neuropathy. 8. History of chronic venous stasis of lower extremities. 9. Chronic obstructive pulmonary disease. 10. Morbid obesity. ALLERGIES: Vancomycin. LABORATORY DATA: Moderate protein-calorie malnutrition, albumin 2.9. Leukocytosis, white blood count 14.3. PHYSICAL EXAMINATION GENERAL: Shows alert, pleasant, middle-aged gentleman who is pleasant and conversant. HEENT: Mucous membranes are moist. NECK: Supple. LUNGS: Respirations are unlabored. ABDOMEN: Soft. EXTREMITIES: Shows evidence of chronic venous stasis and the hyperkeratosis of both lower extremities, mild lymphedema. There is mild redness of both lower legs, which is slightly tender, indicative of cellulitis. No open wounds or ulcers. Arterial ultrasound of lower extremities shows patent dorsalis pedis [facility] [address] [place] [address] CONSULTATION Name: NATYMARCKOLBYCONOR Pelaez Room #: [address] [place] [address] IN ..#: [id number] Admission: 04/02/21 Attend Phys: Dale Drummond MD Discharge: Date of : 68 Report #: [id number] arteries bilaterally with normal-appearing waveforms. IMPRESSION: 1. Paraplegia with immobility. 2. Status post brain tumor resection. 3. Status post hemorrhagic cerebrovascular accident. 4. Diabetes mellitus 2 with peripheral neuropathy. 5. Bilateral venous stasis of the legs with inflammation. 6. Cellulitis of right and left leg. 7. Leukocytosis. 8. Moderate protein-calorie malnutrition. 9. Cellulitis of right and left leg. PLAN: IV antibiotics for UTI and cellulitis of the legs. We will order AmLactin applied typically to the hyperkeratotic areas of both legs covered with a double Kerlix wrap and changed daily for breakdown of the dry hyperkeratotic areas of his legs. Wound care team will follow. <ELECTRONICALLY SIGNED> By: Rasta Ham MD 04/05/21 1625 [id number] [id number] Rasta Ham MD /nt
[2021-04-05 21:58] VITALS: BP 150/100
--- NOTE | 2021-04-06 05:26 | NUR ---
ASSUMED CARE AT 1900, PT SLEPT THROUGH THE NIGHT, COMPLIANT TO TX, NO ADVERSE REACTION NOTED, WILL CONTINUE TO MONITOR.
[2021-04-06 07:46] VITALS: BP 165/100
[2021-04-06] MEDS ORDERED: AQUAPHOR W-NAT50 GM TOP (12:44)
--- NOTE | 2021-04-06 13:25 | NUR ---
Assumed pt care at 7am.Pt in bed sleeping on and off.Assessment completed.vss. Pt contantly asking for water to drink. Ice chips given sparingly since pt was on 1500ml fluid restriction.Dr Drummond and woundcare team here,order noted. Pt will be dc home with home health later today.No verbal c/o Will continue to monitor.
[2021-04-06 14:22] VITALS: BP 165/100
[2021-04-06 15:05] VITALS: BP 165/100
--- NOTE | 2021-04-06 15:19 | NUR ---
PT ADMITTED RELATED TO UTI AND DEBILITY. CM REVIEWED CHART AND SPOKE WITH CARE TEAM. CM MET WITH PT AT BEDSIDE THIS DAY. PT APPEARED TO BE A&O X4. CM ROLE INTRODUCED. PT INDICATED HE LIVES ALONE IN A HOUSE WITH A RAMP TO ENTER AND NO STEPS INSIDE. PT INDICATED HE HAS A HOSPITAL BED, POWER WHEELCHAIR THAT IS CURRENTLY BROKEN, SLIDEBOARD, VIN DROP ARM BSC, MANUAL SIT TO STAND, AND CPAP FOR USE AT HOME. PT INDICATED HIS NEIGHBOR/FRIEND FÉLIX PRYOR IS HIS CAREGIVER AND ASSISTS HIM IN THE HOME. 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 PT INIDCATED THAT HIS PCP IS DR. DOMINGUEZ AND HIS GROUP HOME COUNSELOR GEN HAD SEEN PT IN HIS HOME. PT INDICATED NO CURRENT HCBS PROVIDERS. PT INDICATED HE WANTED TO GO HOME NOT TO A SKILLED UPON DC. PT INDICATED HE WAS RECEPTIVE TO HOME HEALTH. PT INDICATED NO PREFERANCE FOR HH PROVIDER. REFERRAL SENT TO [facility]. THEY CAN ACCEPT PT. DEVAN SPOKE WITH FÉLIX AND HE CONFIRMED THAT ABOVE. HE STATED THAT DR. DOMINGUEZ RETIRED AND GEN GROUP HOME COUNSELOR WANTS TO FOLLOW BUT DOESN'T THINK SHE CAN AT THIS MOMENT. DEVAN SPOKE WITH HOSPITALIST THIS DAY DR. TOWNSEND AND HE INDICATED THAT HE WILL FOLLOW FOR HOME HEALTH ORDERS UPON DC. CM NOTIFIED [facility]. 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 DEVAN NOTIFIED FÉLIX HE WILL MEET PT AT THE HOME.
== END 2021-04-06 19:00 | disposition home health service (06) | DRG 690 ==
LOC: ER 19:36 → 4W 23:12 → EROBS 23:12 → 4W 04-03 19:48
PROVIDERS: Nurse Practitioner; ADMIT Internal Medicine; ATTEND Internal Medicine
DX: N39.0 Urinary tract infection, site not specified (principal); G82.20 Paraplegia, unspecified; L03.116 Cellulitis of left lower limb; L03.115 Cellulitis of right lower limb; E44.0 Moderate protein-calorie malnutrition; I87.332 Chronic venous hypertension (idiopathic) with ulcer and inflammation of left lower extremity; L97.819 Non-pressure chronic ulcer of other part of right lower leg with unspecified severity; I69.359 Hemiplegia and hemiparesis following cerebral infarction affecting unspecified side; R65.10 Systemic inflammatory response syndrome (SIRS) of non-infectious origin without acute organ dysfunction; I87.2 Venous insufficiency (chronic) (peripheral); I50.9 Heart failure, unspecified; E11.42 Type 2 diabetes mellitus with diabetic polyneuropathy; L85.9 Epidermal thickening, unspecified; Z20.822 Contact with and (suspected) exposure to COVID-19; F32.9 Major depressive disorder, single episode, unspecified; F41.9 Anxiety disorder, unspecified; E66.01 Morbid (severe) obesity due to excess calories; R53.81 Other malaise; J44.9 Chronic obstructive pulmonary disease, unspecified; I87.8 Other specified disorders of veins; D72.829 Elevated white blood cell count, unspecified; F17.210 Nicotine dependence, cigarettes, uncomplicated; E11.51 Type 2 diabetes mellitus with diabetic peripheral angiopathy without gangrene; I11.0 Hypertensive heart disease with heart failure; G47.33 Obstructive sleep apnea (adult) (pediatric); D49.6 Neoplasm of unspecified behavior of brain; Z99.3 Dependence on wheelchair; Z85.841 Personal history of malignant neoplasm of brain; Z88.1 Allergy status to other antibiotic agents; Z68.39 Body mass index [BMI] 39.0-39.9, adult; Z60.2 Problems related to living alone; Z23 Encounter for immunization
CPT/HCPCS: 10040

== ENCOUNTER 2021-04-19 10:42 | Inpatient (IN) | payer MEDICARE, OTHER ==
[~2021-04-19] VITALS: Ht 188 cm; Wt 99.8 kg
--- NOTE | ~2021-04-19 | EMS ---
[address] [address] EMS Patient Care Report Name: RICARDO ALFONSO Room #: 170-17 ADM IN .R.#: [id number] Admission: 04/19/21 Attend Phys: Rubén Crisostomo MD Discharge: Date of : 68 Report #: [id number] THIS REPORT FOR: //name// Report Transmitted: 04/20/2021 14:52 EMS Care Summary [place], [place]/[facility] Incident [id number] @ 04/19/2021 10:05 Incident Location [address] [place] [address] Patient RICARDO ALFONSO Male, 50 Years 1970 Patient Address [address] [place] [address] Patient History Chronic Obstructive Pulmonary Disease (COPD),Hypertension (HTN),Morbid Obesity,Brain Tumor,Cellulitis, Patient Allergies No known allergies, Patient Medications Prednisone, Alprazolam, Gabapentin, Atorvastatin, Quetiapine, Desmopressin (DDAVP), Aspirin, Lexapro, Metoprolol, Chief Complaint AMS Disposition Transported No Lights/[place] Dispatch Reason Sick Person Transported To [facility] Narrative Upon arrival PT was laying in the supine position on "At homes" hospital bed. PT had a CC of AMS. PT caregiver stated that PT was last seen well 2 [place] [address] EMS Patient Care Report Name: RICARDO ALFONSO Room #: 170-17 ADM IN [facility]#: [id number] Admission: 04/19/21 Attend Phys: Rubén Crisostomo MD Discharge: Date of : 68 Report #: [id number] prior. PT was assisted to stretcher and was taken to back of ambulance for further medical evaluation and intervention. PT was then monitored while en route to hospital for any change in condition. Initial Vitals @10:22P: 137,R: 18,BP: 135/97,Pain: 0/10,GCS: 14,Glucose: 120,SpO2: 97,Revised Trauma: 12, @10:31P: 122,R: 18,BP: 132/96,Pain: 0/10,GCS: 14,SpO2: 97,Revised Trauma: 12, Assessments @10:16MENTAL:Confused,SKIN:No Abnormalities,HEENT:Head/Face: No Abnormalities,Eyes: No Abnormalities,Neck/Airway: No Abnormalities,LUNG SOUNDS:ABDOMEN:PELVIS//GI:No Abnormalities,EXTREMITIES:Left Arm: No Abnormalities,Right Arm: No Abnormalities,Left Leg: No Abnormalities,Right Leg: No Abnormalities,PULSE:NEURO:No Abnormalities, Impression Altered Mental Status Procedures @10:16 ALS Assessment Response: UnchangedSucceeded Timeline 10:03,Call Received 10:03,Dispatch Notified 10:05,Dispatched 10:07,En Route 10:15,On Scene 10:16,At Patient 10:16,ALS Assessment,Response: UnchangedSucceeded, 10:22,BP: 135/97 M,PULSE: 137,RR: 18 R,SPO2: 97 Ox,ETCO2: ,B,PAIN: 0,GCS: 14, 10:26,Depart Scene 10:31,BP: 132/96 M,PULSE: 122,RR: 18 R,SPO2: 97 Ox,ETCO2: ,BG: ,PAIN: 0,GCS: 14, 10:36,At Destination 10:51,Call Closed Disclaimer v1.1 Copyright 2020 [employer] This EMS Care Summary contains data elements from the applicable legal record (which may be displayed differently). It is designed to provide pertinent information for the following purposes: continuity of care, clinical quality, and state data reporting. The complete legal record is available to ED staff and administrators of the receiving hospital in [employer]'s Patient [place] [address] EMS Patient Care Report Name: RICARDO ALFONSO Room #: 170-17 ADM IN ..#: [id number] Admission: 04/19/21 Attend Phys: Rubén Crisostomo MD Discharge: Date of : 68 Report #: [id number] is provided "as is."
[~2021-04-19 10:42] MED LIST changes: +AQUAPHOR W-NAT50 GM TOP
[2021-04-19 10:53] VITALS: BP 149/95
[2021-04-19 11:10] LABS: URINE BILIRUBIN NEGATIVE (Negative); URINE BLOOD 2+ (Negative); URINE CLARITY CLEAR; URINE COLOR YELLOW; URINE GLUCOSE-RANDOM* NEGATIVE (Negative); URINE KETONES NEGATIVE (Negative); URINE NITRITE-REFLEX NEGATIVE (Negative); URINE PROTEIN (DIPSTICK) NEGATIVE (Negative); URINE SPECIFIC GRAVITY <= 1.005 (1.005-1.035); URINE UROBILINOGEN 0.2 E.U./dl (0.2-1.0)
[2021-04-19 11:11] LABS: URINE LEUKOCYTES-REFLEX 3+ (Negative)
[2021-04-19 11:16] LABS: AMP/METHAMP Negative (Negative); BARBITURATES Negative (Negative); BENZODIAZEPINES Negative (Negative); COCAINE Negative (Negative); METHADONE Negative (Negative); OPIATES Negative (Negative); PCP Negative (Negative)
[2021-04-19 11:21] LABS: ABSOLUTE NEUTROPHILS 14.7 thou/uL (1.4-8.2); EOSINOPHILS 0.2 % (0.0-3.0); HEMOGLOBIN 17.7 gm/dL (14.0-18.0); LYMPHOCYTES 6.5 % (24.0-44.0); MCHC 32.8 g/dL (28.0-37.0); MCV 94.8 fL (80.0-100.0); MONOCYTES 6.1 % (1.0-8.0); PLATELET COUNT 372 thou/uL (150-400); POLYS 87.2 % (36.0-66.0); RDW 14.8 % (10.5-14.5); WBC 16.8 thou/uL (4.0-11.0)
[2021-04-19 11:29] LABS: CASTS None Seen /LPF (None Seen); SQUAMOUS 0-3 Few /LPF (0-3); URINE WBC-REFLEX 6-15 Few /HPF (0-5)
[2021-04-19 11:30] LABS: BACTERIA-REFLEX 1-9 Few /HPF (None Seen); CRYSTALS None Seen /LPF (None Seen); URINE RBC 1-2 Rare /HPF (NONE SEEN)
[2021-04-19 11:32] LABS: ANION GAP 14 mmol/L (7-16); BUN 12 mg/dL (7-18); CALCIUM 9.6 mg/dL (8.5-10.1); CHLORIDE 111 mmol/L (98-107); CO2 27 mmol/L (21-32); GLUCOSE 153 mg/dL (74-106); POTASSIUM 3.9 mmol/L (3.5-5.1); SODIUM 152 mmol/L (136-145)
[2021-04-19 11:42] LABS: ALBUMIN 3.1 g/dL (3.4-5.0); MAGNESIUM 2.3 mg/dL (1.8-2.4); SALICYLATE < 2.8 mg/dL (2.8-20.0); SGOT 11 U/L (15-37); SGPT 24 U/L (16-63); TOTAL BILIRUBIN 0.3 mg/dL (0.2-1.0); TOTAL PROTEIN 8.1 g/dL (6.4-8.2)
[2021-04-19 17:53] VITALS: BP 162/92
[2021-04-19 21:10] VITALS: BP 150/77
[2021-04-20] VITALS (7 sets, daily range): BP systolic 110–150; BP diastolic 65–99
[2021-04-20 06:09] LABS: ABSOLUTE NEUTROPHILS 10.9 thou/uL (1.4-8.2); BASOPHILS 0.6 % (0.0-2.0); EOSINOPHILS 0.1 % (0.0-3.0); HEMATOCRIT 50.5 % (42.0-52.0); LYMPHOCYTES 12.8 % (24.0-44.0); MCH 30.6 pg (26.0-34.0); MCHC 31.7 g/dL (28.0-37.0); MCV 96.4 fL (80.0-100.0); PLATELET COUNT 351 thou/uL (150-400); POLYS 77.5 % (36.0-66.0); RBC 5.24 mil/uL (4.50-6.00); RDW 15.2 % (10.5-14.5)
[2021-04-20 06:15] LABS: CALCIUM 8.7 mg/dL (8.5-10.1); CREATININE 1.2 mg/dL (0.7-1.3); MAGNESIUM 2.2 mg/dL (1.8-2.4); POTASSIUM 3.7 mmol/L (3.5-5.1)
--- NOTE | 2021-04-20 06:19 | NUR ---
PT SLEPT THROUGHOUT THE NIGHT BUT WAS EASILY ARROUSABLE. KENNEDY TO DD WITH GOOD URINE OUTPUT. SPO2 >92% ON 3L NC. TYLENOL GIVEN FOR FEVER, WHICH IMPROVED. NO SIGNIFICANT C/O PAIN DURING THE NIGHT. WILL GIVE REPORT TO ONCOMING NURSE.
--- NOTE | 2021-04-20 07:30 | EKG ---
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1970 Requested By: Jesse Walsh Order Number: [id number] MD: Stanley Cardona Measurements Intervals [place] Rate: 122 P: 42 HI: 153 QRS: 48 QRSD: 87 T: 88 QT: 317 QTc: 452 Interpretive Statements Sinus tachycardia Probable left atrial enlargement Compared to ECG 12/01/2020 16:50:57 No significant changes Electronically Signed On 04-20-2021 7:29:52 [employer] by Stanley Cardona [email or web address] <ELECTRONICALLY SIGNED> By: Stanley Cardona MD, [facility] 04/20/21 0729 D: 12/1108 08 Stanley Cardona MD, FACC /EPI
--- NOTE | 2021-04-20 13:35 | NUR ---
PATIENT REFUSED DIET MODIFICATIONS AND VIDEOSWALLOW STUDY. PATIENT DEMONSTRATES OVERT S/S OF ASPIRATION ACROSS ALL CONSISTENCIES. PATIENT IS KNOWN TO THE SPEECH THERAPY DEPARTMENT AND HAS REFUSED RECOMMENDATIONS DURING PREVIOUS STAYS PATIENT STATES HE WANTS A REGULAR DIET THIS IS THE ONLY THING HE CAN ENJOY IN LIFE. PATIENT IS AWARE OF RISKS OF ORAL DIET.
[2021-04-21 04:44] VITALS: BP 140/91
[2021-04-21 05:03] LABS: ALBUMIN 2.6 g/dL (3.4-5.0); CALCIUM 8.8 mg/dL (8.5-10.1); CREATININE 1.4 mg/dL (0.7-1.3); POTASSIUM 3.8 mmol/L (3.5-5.1); TOTAL BILIRUBIN 0.4 mg/dL (0.2-1.0); TOTAL PROTEIN 6.2 g/dL (6.4-8.2)
[2021-04-21 05:07] LABS: ABSOLUTE NEUTROPHILS 9.1 thou/uL (1.4-8.2); BASOPHILS 0.7 % (0.0-2.0); EOSINOPHILS 0.9 % (0.0-3.0); HEMATOCRIT 45.9 % (42.0-52.0); HEMOGLOBIN 14.9 gm/dL (14.0-18.0); LYMPHOCYTES 23.3 % (24.0-44.0); MCH 31.4 pg (26.0-34.0); MCHC 32.5 g/dL (28.0-37.0); MCV 96.8 fL (80.0-100.0); MONOCYTES 9.3 % (1.0-8.0); POLYS 65.8 % (36.0-66.0); RBC 4.75 mil/uL (4.50-6.00); WBC 13.7 thou/uL (4.0-11.0)
[2021-04-21 05:20] LABS: PLATELET COUNT 268 thou/uL (150-400)
--- NOTE | 2021-04-21 05:38 | NUR ---
PATIENTS ARRIVED ON THE FLOOR AT 2308 FROM ED. PATIENT WAS ADMITTED AND TEACHING AND ASSESMENT WAS DONE AND CHARTED. THIS IS A PLEASEND MAN HOWEVER A SHOWER OR BED BATH IS IN ORDER. LINEZOID WAS LATE DUE TO MED NOT ON THE FLOOR ROUNDS WHERE DONE. THE BED IS IN A LOW AND LOCKED POSITION. THE BED ALARM IS ON. THIS PATIENT IS A PARAPEGIC.
[2021-04-21 07:00] VITALS: BP 119/66
[2021-04-21 11:00] VITALS: BP 129/75
[2021-04-21 15:00] VITALS: BP 127/81
--- NOTE | 2021-04-21 15:00 | NUR ---
PATIENT ADMITTED FOR AMS AND UTI. CHART REVIEWED AND CASE DISCUSSED WITH CARE TEAM. CM MET WITH PT THIS DAY. CM ROLE INTRODUCED. PATIENT REPORTS HE CURRENLY USES PERSONAL CARE PRIVATE DUTY. HE REPORTS HE USES A POWER WHEELCHAIR BUT IT IS NOT WORKING AT THIS TIME AND NOT SCHEDULED TO BE FIXED UNTIL JULY. PT REPORTS HE DOES NOT GET UP WITH WHEELCHAIR NOT WORKING AND HIS FRIEND/NEIGHBOR BRINGS HIM THINGS HE NEEDS. HE HAS NOT BEEN GETTING OUT OF BED. HE LIVES AT HOME ALONE. ALSO USES A SLIDEBOARD, SIT/STAND/ AND CPAP. DOES NOT REMEMBER THE NAME OF THE COMPANY THAT SUPPLIES CPAP OR CONCENTRATOR. PATIENT REPORTS HE DOES NOT WANT SNF BUT AGREEABLE TO . REFERRAL SENT TO A. CM FOLLOWING.
--- NOTE | 2021-04-21 16:34 | NUR ---
ASSESSMENT CHARTED - MEDS PER ERASMO - HUNTER DIET AND FLUIDS. NO CO'S OF PAIN OR NAUSEA. PT HAS REMAINED RESTING IN BED THIS SHIFT - WAS SEEN BY PHYS THERAPY AND SAT ON THE SIDE OF THE BED. PT LEGS TO BE DRESSED NOW THAT WOUND CARE HAS BEEN THROUGH FOR THE DAY. ACCUCHECKS CHARTED - MONITOR REMOVED ORDERED - PT IS NOW MED/SURG STATUS. NO CO'S AT THE PRESENT TIME.
--- NOTE | 2021-04-21 16:46 | NUR ---
RECIEVED MESSAGE [facility] IS UNABLE TO ACCEPT PT BECAUSE THEY ARE AT [facility]. SPOKE TO PATIENT AGAIN AT BEDSIDE REGARDING SKILLED SERVICES. HE IS NOT AGREEABLE AT ALL AND REFUSING TO GO. HE REPORTS HE WILL STAY WITH PERSONAL CARE PRIVATE DUTY. THEY ARE THERE 3.5 HOURS A DAY CLEANING AND OTHER CARE. HE IS STILL AGREEABLE TO HH. REFERRAL SENT TO [facility]. CM WILL CONTINUE TO FOLLOW.
[2021-04-21 20:15] VITALS: BP 138/87
--- NOTE | 2021-04-21 23:59 | HC ---
[facility] [place] [address] [place] [address] CONSULTATION Name: RICARDO ALFONSO Room #: 210-P ADM IN M.R.#: [id number] Admission: 04/19/21 Attend Phys: Rubén Crisostomo MD Discharge: Date of : 68 Report #: [id number] THIS REPORT FOR: cc: FAM - No family physician/PCP FAM - No family physician/PCP Matthew Hickman MD ~ DATE OF SERVICE: 04/20/2021 INFECTIOUS DISEASE CONSULTATION REASON FOR CONSULTATION: I was asked to evaluate concerning sepsis. HISTORY OF PRESENT ILLNESS: The patient is a 50-year-old with history of stroke, brain tumor, status post resection with paraplegia, seizures in the setting of obesity, recurrent lower extremity cellulitis, diabetes, peripheral neuropathy, congestive heart failure, anxiety and depression. He reports acute mental status change. Yesterday, he was found by his neighbor lethargic, disoriented, brought into the emergency room. He has had no documented fever. He has had intermittent nonproductive cough. He was COVID vaccinated previously and COVID screening negative. He is on 4 liters of oxygen per nasal cannula. He does have a FASHION INTERN shunt. No nausea, vomiting or diarrhea. He now has an indwelling Romero catheter. No dysuria or frequency. No diarrhea. A 14-point review was negative other than what has been described above. He does have partial paralysis of his lower extremities. He is able to void. Now, he has an indwelling Romero catheter. ALLERGIES: VANCOMYCIN. MEDICATIONS: As noted on his JUN, now on Zyvox and Zosyn. PAST MEDICAL HISTORY: Resected brain tumor, FASHION INTERN shunt, seizure disorder. He has had a baclofen pump, diabetes, hemorrhagic stroke, paraplegia, anxiety, depression, hypertension, incontinent of bowel and bladder, smoker, congestive heart failure, chronic bronchitis, cellulitis of his lower extremities, aspiration pneumonia, sepsis, obesity, obstructive sleep apnea, chronic venous stasis disease, pulmonary hypertension, peripheral artery disease, a FASHION INTERN shunt placed. FAMILY HISTORY: Negative for tuberculosis. SOCIAL HISTORY: Smoker of cigarettes. No significant alcohol intake. PHYSICAL EXAMINATION: GENERAL: Afebrile, hemodynamically stable, now on 5 liters of oxygen per nasal cannula. He had loose cough with congestion, mostly on the left side. [address] [address] CONSULTATION Name: RICARDO ALFONSO Room #: [address] [place] [address] IN ..#: [id number] Admission: 04/19/21 Attend Phys: Rubén Crisostomo MD Discharge: Date of : 68 Report #: [id number] SKIN: With venous stasis changes to both lower extremities with thickened scaly skin. No decubiti noted. Obese. EXTREMITIES: 2+ lower extremity edema. Paraparesis. GENITOURINARY: Indwelling Romero catheter. No masses or lesions noted in his genitalia. RECTAL: Not performed. HEENT: No palpable adenopathy. Cranial defect from his previous tumor resection. Eyes without scleral icterus. Mouth without mucositis. NECK: Supple. LUNGS: Coarse breath sounds posteriorly, left greater than right. HEART: Regular, without murmur, gallop or rub. ABDOMEN: Obese, nontender. No hepatosplenomegaly or mass appreciated. He has got a baclofen pump in the left abdominal wall. NEUROLOGIC: Cranial nerves intact. Mood without anxiety. Alert and cooperative. LABORATORY DATA: Reviewed. MICROBIOLOGY: Reviewed. IMAGING: Chest x-ray reviewed. CT scan of the head reviewed. IMPRESSION: Sepsis with encephalopathy, pneumonia, possible urinary tract infection and associated bacteremia. He has had diabetes, brain tumor resection with FASHION INTERN shunt, hypertension, diabetes, now with hypernatremia in addition to the above. RECOMMENDATIONS: Continuing broad antibiotic coverage while awaiting culture results. Unclear at this point if the bacteremia is contaminant or true. We will follow serial chest x-rays, sputum culture, repeat blood cultures, await urine culture and adjust his antibiotics pending these results. <ELECTRONICALLY SIGNED> By: Matthew Hickman MD 04/21/21 2359 1754 11 Matthew Hickman MD /nt
[2021-04-22] VITALS (7 sets, daily range): BP systolic 106–133; BP diastolic 60–94
[2021-04-22 07:02] LABS: CALCIUM 8.9 mg/dL (8.5-10.1); POTASSIUM 3.4 mmol/L (3.5-5.1)
[2021-04-22] MEDS ORDERED: AMOX TR-K CLV1 EAC4 PO (12:57)
--- NOTE | 2021-04-22 13:48 | NUR ---
ADV. DIRECTIVE CONSULT [id number] WAS INITIATED TODAY BY THIS PHOTOGRAMMETRIST. PATIENT IS INTERESTED, BUT WANTED TO SPEAK TO THE PERSON HE IS APPOINTING, BEFORE HE FORMALIZES THE DOCUMENT.
--- NOTE | 2021-04-22 13:53 | NUR ---
REFERRAL FOR HH FAXED TO [facility], [facility], [facility], [facility], [facility], [facility], [facility], [facility], AND [facility]. ALL UNABLE TO ACCEPT AT THIS TIME. SPOKE TO PT AT BEDSIDE. HE REPORTS OK TO GO HOME WITHOUT HH. HE REPORTS LONG HE HAS FÉLIX AND PRIVATE CAREGIVERS HE WILL BE OKAY. CONFIRMED HE WILL HAVE PRIVATE CAREGIVERS HE REPORTED YES. ALSO CONFIRMED NEIGHBOR FÉLIX WILL BE THERE THIS EVENING TO ASSIST PT ONCE HE RETURNS HOME. HE REPORTS YES. CONFIRMED PTS ADDRESS. ARRANGED TRANSPORTATION THROUGH [employer]IA [facility]ER AND THEY WILL TRANSPORT 6-7PM THIS EVENING. RN AWARE.
--- NOTE | 2021-04-22 15:27 | NUR ---
NO FALLS OR INJURIES THIS SHIFT. ALL SAFETY MEASURES IN PLACE. VSS. PATIENT ABLE TO COMPLETE ADLs WITH ASSISTANCE. NO C/O PAIN. TOLERATES DIET, GOOD APPETITE. WOUND CARE COMPLETED TO [facility] PER ORDERED MINUS THE LAURA WRAP WHICH WAS ORDERED FROM . KENNEDY REMOVED AND PATIENT HAS VOIDED. PATIENT TO DC HOME BY TABITHA TORO AFTER 1800. PATIENT AGREES WITH POC.
--- NOTE | 2021-04-23 12:34 | NUR ---
[facility] hotline call placed due to pt requiring 24hr care to be safe in the home. He has only 3.5 hrs of HBCS daily and a neighbor/friend who can help out some. Limited support system. Broken DME and bed confined. Hotline call for self neglect to Radha#9. Requesting home assessment and assistance with more in home services or placment.
--- NOTE | 2021-04-27 13:50 | NUR ---
Call back rec'd from [facility] worker Kylefredrick Montgomery [phone] as he had been assigned to investigate the hotline call. Message left for Kyle with basic details of the pt's situation and limited support system/ 24hr care needs.
== END 2021-04-22 20:08 | disposition home or self-care (01) | DRG 871 ==
LOC: ER 10:42 → 2N 18:04 → EROBS 18:04 → 2N 04-20 22:35
PROVIDERS: Emergency Medicine; Nurse Practitioner; Specialist; ADMIT Hospitalist; ATTEND Hospitalist
PROC: 5A09357 Assistance with Respiratory Ventilation, Less than 24 Consecutive Hours, Continuous Positive Airway Pressure (ICD-10-PCS; principal; 2021-04-21)
DX: A41.1 Sepsis due to other specified staphylococcus (principal); J96.01 Acute respiratory failure with hypoxia; J18.9 Pneumonia, unspecified organism; G92.8 Other toxic encephalopathy; N39.0 Urinary tract infection, site not specified; E87.0 Hyperosmolality and hypernatremia; G82.20 Paraplegia, unspecified; E44.0 Moderate protein-calorie malnutrition; I69.359 Hemiplegia and hemiparesis following cerebral infarction affecting unspecified side; Z20.822 Contact with and (suspected) exposure to COVID-19; F32.9 Major depressive disorder, single episode, unspecified; F41.9 Anxiety disorder, unspecified; E11.51 Type 2 diabetes mellitus with diabetic peripheral angiopathy without gangrene; G47.33 Obstructive sleep apnea (adult) (pediatric); E86.0 Dehydration; E11.42 Type 2 diabetes mellitus with diabetic polyneuropathy; I11.0 Hypertensive heart disease with heart failure; I50.9 Heart failure, unspecified; F17.210 Nicotine dependence, cigarettes, uncomplicated; I87.8 Other specified disorders of veins; L57.0 Actinic keratosis; E78.5 Hyperlipidemia, unspecified; R53.81 Other malaise; E66.01 Morbid (severe) obesity due to excess calories; I27.20 Pulmonary hypertension, unspecified; G40.909 Epilepsy, unspecified, not intractable, without status epilepticus; R23.4 Changes in skin texture; I87.2 Venous insufficiency (chronic) (peripheral); Z88.1 Allergy status to other antibiotic agents; Z99.3 Dependence on wheelchair; Z68.28 Body mass index [BMI] 28.0-28.9, adult; Z79.899 Other long term (current) drug therapy; Z23 Encounter for immunization
CPT/HCPCS: 10081; 10194

== ENCOUNTER 2021-05-15 17:03 | Emergency (ER) | payer OTHER ==
[~2021-05-15] VITALS: Ht 188 cm; Wt 112.5 kg
--- NOTE | ~2021-05-15 | EMS ---
[facility] [address] [place] [address] EMS Patient Care Report Name: RICARDO ALFONSO Room #: REG CONOR Berman#: [id number] Admission: 05/15/21 Attend Phys: Discharge: Date of : 68 Report #: [id number] THIS REPORT FOR: //name// Report Transmitted: 05/15/2021 16:32 EMS Care Summary [place], [place]/[facility] Incident [id number] @ 05/15/2021 16:24 Incident Location [address] [place] [address] Patient RICARDO ALFONSO Male, 50 Years 1970 Patient Address [address] [place] [address] Patient History Chronic Obstructive Pulmonary Disease (COPD),Hypertension (HTN),Morbid Obesity,Brain Tumor,Cellulitis, Patient Allergies No known allergies, Patient Medications Alprazolam, Lexapro, Metoprolol, Aspirin, Desmopressin (DDAVP), Gabapentin, Atorvastatin, Prednisone, Quetiapine, Chief Complaint BLOOD IN CATHETER BAG Disposition Transported No Lights/[place] Dispatch Reason Hemorrhage/Laceration Transported To [facility] Narrative UPON ARRIVAL PT SUPINE IN BED CONSCIOUS AND ALERT. PT HAS MANY UNKNOWN SUBSTANCES AND BODILY FLUIDS ALL OVER HIS SELF. PT'S NEIGHBOR, WHO HELPS TAKE [facility] [address] [place] [address] EMS Patient Care Report Name: RICARDO ALFONSO Room #: REG [facility]#: [id number] Admission: 05/15/21 Attend Phys: Discharge: Date of : 68 Report #: [id number] CARE OF HIM, STATES HIS CATHETER BAG HAS BEEN FILLING WITH BLOOD THROUGHOUT THE DAY TODAY. BAG HAS BEEN EMPTIED BUT THERE APPEARES TO BE A SMALL AMOUNT OF BLOOD IN THE TUBE. PT HAS NO COMPLAINTS. PT DID JUST START TAKING ELIQUIS TODAY. PT WAS IN [facility] WHERE HE TESTED PSITIVE FOR COVID 4-5 DAYS AGO. HE DOES NOT KNOW WHAT HE WENT TO THE HOSPITAL FOR BUT THEY PUT THE URINARY CATHETER IN. PT'S OWN DOCTOR SAYS CATHETER SHOULD HAVE BEEN REMOVED BEFORE DISCHARGE AND WANTS PT TO GO TO [facility] INSTEAD. WE ADVISE PT RESEARCH WOULD BE ABLE TO BETTER TREAT PT THEY JUST SAW HIM BUT THEY INSIST ON [facility]. PT PULLED TO [facility]IA [facility] AND TRANSPORTED. Initial Vitals @16:52P: 98,CO: 3,SpO2: 91, @16:42P: 96,R: 20,BP: 129/72,Pain: 0/10,GCS: 15,SpO2: 93,Revised Trauma: 12, @16:58P: 103,R: 20,BP: 116/54,GCS: 15,CO: 4,SpO2: 92,Revised Trauma: 12, Assessments @16:35MENTAL:Time Oriented,Place Oriented,Event Oriented,Person Oriented,SKIN:HEENT:Head/Face: No Abnormalities,LUNG SOUNDS:General: No Abnormalities,ABDOMEN:General: No Abnormalities,PELVIS//GI:Hematuria,EXTREMITIES:Left Arm: No Abnormalities,Right Arm: No Abnormalities,PULSE:NEURO:No Abnormalities, Impression Hemorrhage Procedures @16:35 ALS Assessment Response: UnchangedSucceeded Timeline 16:22,Call Received 16:22,Dispatch Notified 16:24,Dispatched 16:25,En Route 16:33,On Scene 16:34,At Patient 16:35,ALS Assessment,Response: UnchangedSucceeded, 16:42,BP: 129/72 M,PULSE: 96,RR: 20 R,SPO2: 93 Ox,ETCO2: ,BG: ,PAIN: 0,GCS: 15, 16:45,Depart Scene 16:52,BP: / M,PULSE: 98,RR: R,SPO2: 91 Ox,ETCO2: ,BG: ,PAIN: ,GCS: , 16:58,At Destination 16:58,BP: 116/54 M,PULSE: 103,RR: 20 R,SPO2: 92 Ox,ETCO2: ,BG: ,PAIN: ,GCS: 15, 17:15,Call Closed Disclaimer v1.1 Copyright 2021 [employer] [address] [address] EMS Patient Care Report Name: NATYRICARDO Room #: REG CONOR PatelR.#: [id number] Admission: 05/15/21 Attend Phys: Discharge: Date of : 68 Report #: [id number] This EMS Care Summary contains data elements from the applicable legal record (which may be displayed differently). It is designed to provide pertinent information for the following purposes: continuity of care, clinical quality, and state data reporting. The complete legal record is available to ED staff and administrators of the receiving hospital in [employer]'s Patient Tracker. All data is provided "as is."
[2021-05-15] MEDS ORDERED: ELIQUIS5 MG (17:12)
[2021-05-15 17:15] LABS: URINE BILIRUBIN NEGATIVE (Negative); URINE BLOOD 2+ (Negative); URINE CLARITY CLEAR; URINE COLOR YELLOW; URINE GLUCOSE-RANDOM* NEGATIVE (Negative); URINE KETONES NEGATIVE (Negative); URINE LEUKOCYTES-REFLEX TRACE (Negative); URINE NITRITE-REFLEX NEGATIVE (Negative); URINE PROTEIN (DIPSTICK) NEGATIVE (Negative); URINE SPECIFIC GRAVITY >= 1.030 (1.005-1.035)
[2021-05-15 17:24] LABS: HEMATOCRIT 44.7 % (42.0-52.0); HEMOGLOBIN 14.6 gm/dL (14.0-18.0); MCH 30.1 pg (26.0-34.0); MCHC 32.7 g/dL (28.0-37.0); MCV 92.2 fL (80.0-100.0); PLATELET COUNT 333 thou/uL (150-400); RBC 4.85 mil/uL (4.50-6.00); RDW 15.7 % (10.5-14.5); WBC 18.3 thou/uL (4.0-11.0)
[2021-05-15 17:32] LABS: SQUAMOUS 0-3 Few /LPF (0-3)
[2021-05-15 17:33] LABS: CALCIUM OXALATE 0-3 Few /LPF (None Seen); CASTS None Seen /LPF (None Seen); MUCUS >6 Heavy strn/LPF (None Seen)
[2021-05-15 17:34] LABS: URINE RBC 3-10 Few /HPF (NONE SEEN); URINE WBC-REFLEX 0-5 Rare /HPF (0-5)
[2021-05-15 17:37] LABS: CALCIUM 8.5 mg/dL (8.5-10.1); CREATININE 0.8 mg/dL (0.7-1.3); POTASSIUM 4.1 mmol/L (3.5-5.1)
[2021-05-15 17:43] LABS: ALBUMIN 2.3 g/dL (3.4-5.0); TOTAL BILIRUBIN 0.5 mg/dL (0.2-1.0); TOTAL PROTEIN 6.1 g/dL (6.4-8.2)
[2021-05-15 17:49] LABS: PLATELET ESTIMATE NORMAL
[2021-05-15] MEDS ORDERED: AUGMENTIN 500-1 EACH PO (22:10)
[2021-05-15 23:30] VITALS: BP 110/62
== END 2021-05-15 23:30 | disposition home or self-care (01) ==
LOC: ER 17:03
PROVIDERS: Emergency Medicine; Nurse Practitioner
DX: N39.0 Urinary tract infection, site not specified (principal); R31.9 Hematuria, unspecified; E11.9 Type 2 diabetes mellitus without complications; F32.9 Major depressive disorder, single episode, unspecified; F41.9 Anxiety disorder, unspecified; I11.0 Hypertensive heart disease with heart failure; I50.9 Heart failure, unspecified; E66.01 Morbid (severe) obesity due to excess calories; I73.9 Peripheral vascular disease, unspecified; F17.210 Nicotine dependence, cigarettes, uncomplicated; Z68.31 Body mass index [BMI] 31.0-31.9, adult; Z85.841 Personal history of malignant neoplasm of brain; Z79.51 Long term (current) use of inhaled steroids; Z79.891 Long term (current) use of opiate analgesic; Z79.1 Long term (current) use of non-steroidal anti-inflammatories (NSAID); Z79.899 Other long term (current) drug therapy; Z79.4 Long term (current) use of insulin; Z88.1 Allergy status to other antibiotic agents